=== PATIENT | female | born 1980 | race Caucasian/White ===

== ENCOUNTER → 2019-03-30 17:28 | Outpatient (CLI) | payer OTHER, SELFPAY ==
--- NOTE | ~2019-03-30 | XR_ITS ---
EXAMINATION: XR_CERV2-3V_CR, XR thoracic spine 2V DATE: 03/30/2019 17:56 INDICATION: Neck pain TECHNIQUE: 1. AP, lateral, lateral swimmers and odontoid views of the cervical spine were obtained. 2. AP, lateral and lateral swimmers views of the thoracic spine were obtained. COMPARISON: None FINDINGS: Cervical spine: Slight reversal of the normal cervical lordosis centered at C5-C6 where there is mild disc height los s with small endplate osteophytes. Vertebral body and remaining disc heights are normal. Dens is inta ct. Mild uncovertebral osteoarthritis bilaterally at C4-C5 and C5-C6. No significant cervical facet o steoarthritis. Prevertebral soft tissues are normal. Orthodontic braces along the mandibular and maxi llary teeth. Thoracic spine: 9 degrees dextrocurvature measured between T6 and T9. Sagittal alignment is normal. Vertebral body he ights are normal. Mild disc height loss at T4-T5 through T7-T8. Paravertebral soft tissues and visua lized lungs are unremarkable. Radio mediastinal silhouette is normal. IMPRESSION: 1. Mild cervical and thoracic spondylosis with mild midthoracic dextrocurvature. Reviewed, dictated and finalized at location A. D INSTRUCTOR IMPRESSION: 1. Mild cervical and thoracic spondylosis with mild midthoracic dextrocurvature .
== END ==
PROVIDERS: PCP Nurse Practitioner; Visit Provider Nurse Practitioner
DX: M47.892 Other spondylosis, cervical region (principal); M47.894 Other spondylosis, thoracic region
CPT/HCPCS: 72040; 72070

== ENCOUNTER → 2019-06-01 09:33 | Outpatient (CLI) | payer OTHER, SELFPAY ==
--- NOTE | ~2019-06-01 | MR_ITS ---
EXAMINATION: MR cervical spine wo con EXAM DATE: 06/01/2019 10:19 INDICATION: Neck pain, bilateral arm numbness. TECHNIQUE: Multi-sequential, multiplanar MR images of the cervical spine were obtained without contra st. Axial T2, axial T2 MERGE sequence. Sagittal T1, T2, T2 fat saturation images also obtained. Th ere is no prior study for comparison. FINDINGS: There is mild to moderate disc disease at C5-6. The vertebral body and disc heights are ot herwise well maintained. The vertebral bodies are aligned in the AP dimension. There are no suspiciou s marrow signal abnormalities. The spinal cord signal intensity and intrinsic morphology is normal. C ervicomedullary junction is normal in appearance. Paraspinal soft tissue is unremarkable. Level by level evaluation: C2-C3: Disc does not extend beyond the endplate margin. Uncovertebral joint arthropathy: None. Facet joint arthropathy: Mild bilateral. Neural foraminal stenosis: No stenosis. Central canal stenosis: No stenosis. C3-C4: Disc does not extend beyond the endplate margin. Uncovertebral joint arthropathy: None. Facet joint arthropathy: Mild bilateral. Neural foraminal stenosis: No stenosis. Central canal stenosis: No stenosis. C4-C5: Disc does not extend beyond the endplate margin. Uncovertebral joint arthropathy: Mild left. Facet joint arthropathy: Mild bilateral. Neural foraminal stenosis: No stenosis. Central canal stenosis: No stenosis. C5-C6: There is a mild diffuse disc bulge. Uncovertebral joint arthropathy: Mild bilateral. Facet joint arthropathy: Mild bilateral. Neural foraminal stenosis: No stenosis. Central canal stenosis: No stenosis. C6-C7: Disc does not extend beyond the endplate margin. Uncovertebral joint arthropathy: Mild bilateral. Facet joint arthropathy: None. Neural foraminal stenosis: No stenosis. Central canal stenosis: No stenosis. C7-T1: Disc does not extend beyond the endplate margin. Uncovertebral joint arthropathy: Mild bilateral. Facet joint arthropathy: None. Neural foraminal stenosis: No stenosis. Central canal stenosis: No stenosis. IMPRESSION: 1. Mild cervical spondylosis. Reviewed, dictated and finalized at location B.
== END ==
PROVIDERS: PCP Internal Medicine; Visit Provider Nurse Practitioner
DX: M47.892 Other spondylosis, cervical region (principal)
CPT/HCPCS: 72141

== ENCOUNTER 2019-12-29 13:03 | Outpatient (CLI) | payer OTHER, SELFPAY ==
--- NOTE | ~2019-12-29 | MM_ITS ---
EXAMINATION: MM screening [place] BI w aiden HISTORY: Screening TECHNIQUE: Craniocaudal and mediolateral oblique 3-D tomosynthesis images were obtained and synthetic 2-D images were generated. CAD analysis was submitted and interpreted. COMPARISON: No prior mammogram is available for comparison at this institution. BREAST PARENCHYMAL COMPOSITION: The breasts are extremely dense, which lowers the sensitivity of mamm ography. FINDINGS: There is no evidence of suspicious mass, calcification, or architectural distortion to sugg est malignancy in either breast. There has been no suspicious interval change. IMPRESSION: 1. No mammographic evidence of malignancy. 2. Recommend routine screening mammography in one year. BI-RADS Category 1: Negative Reviewed, dictated and finalized at location D. CIATE MEDIA PLANNER
== END 2019-12-29 13:04 | disposition home or self-care (01) ==
LOC: ANHIMG 13:07
PROVIDERS: PCP Internal Medicine; Visit Provider Obstetrics & Gynecology
DX: Z12.31 Encounter for screening mammogram for malignant neoplasm of breast (principal)
CPT/HCPCS: 77063; 77067

== ENCOUNTER → 2020-02-23 12:55 | Outpatient (CLI) | payer OTHER, SELFPAY ==
--- NOTE | ~2020-02-23 | CT_ITS ---
EXAMINATION: CT abdomen pelvis wo/w con DATE: 02/23/2020 13:39 INDICATION: Gross hematuria, history of colectomy for ulcerative colitis TECHNIQUE: Computed tomography (CT) of the abdomen and pelvis was performed without intravenous contr ast. CT of the abdomen and pelvis was then performed with a total of 130 mL Omnipaque 350 intravenous contrast using a double-bolus technique for simultaneous opacification of the renal parenchyma and r enal collecting system. The dose-length product (DLP) was 1086.08 mGy-cm. Automated exposure control and iterative reconstruction technique were employed. COMPARISON: None FINDINGS: The lung bases are clear. The heart size is normal. The liver, spleen, pancreas, gallbladde r, and adrenal glands are normal. No suspicious renal or urothelial lesion is identified. No stones a re identified in the kidneys, ureters, or bladder. There is no hydronephrosis or hydroureter. There a re changes of total colectomy. No pathologically enlarged abdominal or pelvic lymph nodes are identif ied. There is no free intraperitoneal gas or evidence of bowel obstruction. There are bilateral L5 pa rs defects with grade 1 anterolisthesis of L5 on S1. IMPRESSION: 1. No CT correlate for the patient's symptoms. Reviewed, dictated and finalized at location A. UNICATIONS CONTROLLER
[2020-02-23 13:16] LABS: Estimated Glomerular Filt Rate > 60
== END ==
PROVIDERS: PCP Internal Medicine; Visit Provider Urology
DX: R31.0 Gross hematuria (principal)
CPT/HCPCS: 74178; Q9967

== ENCOUNTER 2020-09-14 09:19 | Outpatient (CLI) | payer OTHER, SELFPAY ==
--- NOTE | ~2020-09-14 | XR_ITS ---
XR knee LT min 4V DATE: 09/14/2020 09:43 INDICATION: Generalized left knee pain. Limited range of motion. History of meniscal tear, anterior c ruciate ligament surgery. TECHNIQUE: Standing AP, PA and lateral views. [place] view. COMPARISON: None FINDINGS: There are drill holes in the distal femur and proximal tibia consistent with anterior cruci ate ligament repair. There is a transverse fixation device in the distal femoral metaphysis and to st aples in the medial aspect of the proximal tibial metadiaphysis. No recent fracture or dislocation or joint effusion. No periosteal reaction or bone destruction. No r adiopaque intra-articular loose body or chondrocalcinosis. IMPRESSION: Postoperative change of the left knee Reviewed, dictated and finalized at location A.
== END 2020-09-14 09:20 | disposition home or self-care (01) ==
PROVIDERS: PCP Internal Medicine; Visit Provider Nurse Practitioner
DX: M25.562 Pain in left knee (principal)
CPT/HCPCS: 73564

== ENCOUNTER → 2020-10-19 10:18 | Outpatient (CLI) | payer OTHER, SELFPAY ==
--- NOTE | ~2020-10-19 | MR_ITS ---
EXAMINATION: MR knee LT wo con DATE: 10/19/2020 11:34 INDICATION: Medial meniscal tear presenting with left knee pain TECHNIQUE: Magnetic resonance imaging (MRI) of the left knee was performed without intravenous contra st. Sequences included coronal PD-weighted FSE, coronal fluid sensitive FSE STIR, sagittal fluid sen sitive FSE STIR, sagittal PD-weighted FSE and axial fluid sensitive FSE STIR. COMPARISON: Left knee radiographs dated 09/14/2020 FINDINGS: Medial compartment: Longitudinal vertical tear in the peripheral third (red zone) of the posterior horn of the medial men iscus. Articular cartilage is normal. Lateral compartment: The body and posterior horn of the lateral meniscus are small consistent with change of prior partial meniscectomy. Complex tear at the remaining posterior horn with vertical configuration and meniscoca psular separation at the periphery of the more lateral posterior horn and transitioning to a more clinton gitudinal horizontal tear plane extends medially towards the posterior root. Deep chondral ulceration with mild underlying cortical irregularity along the anterior to central weightbearing lateral femor al condyle. Additional chondral ulceration along the posterior margin of the lateral tibial plateau w here there is also an irregular cortical contour with appearance more suggestive of an old healed imp action fracture related to a chronic anterior tibial subluxation injury. Patellofemoral compartment: Articular cartilage is normal. Ligaments and tendons: Postoperative change of prior anterior cruciate ligament reconstruction with metallic magnetic field artifact associated with an associated fixation screws at the metaphyseal region at the lateral condy le and with a couple fixation andres along the anteromedial metaphyseal region of the proximal tibia . There is a large intraosseous ganglion cyst which measures approximately 1.9 x 1.3 x 0.9 cm along t he proximal aspect of the femoral tunnel of the reconstruction. There appears to be a partial tear of the graft with cyclops lesion anterior to the tibial tunnel resulting from the torn portion of the g raft. Approximately one half of the graft appears to remain intact extending between the femoral and tibial tunnels. The medial collateral ligament and fibular collateral ligament complex are normal. Th e extensor mechanism is normal. The visualized medial and lateral hamstring tendons as well as the il iotibial band are normal. Fluid: Physiologic amount of fluid in the joint space. There are couple tiny loose bodies the larger measuri ng 3 mm positioned within a ganglion cyst which extends anterolaterally from the region of the tibial tunnel caudal to the transverse (anterior meniscomeniscal) intrameniscal ligament and anterior to th e lateral tibial plateau. Osseous/other: Normal marrow signal. No acute fracture or pathologic marrow replacing process. IMPRESSION: 1. Anterior cruciate ligament reconstruction with partial tear of the graft and large intraosseous ga nglion cyst along the tibial tunnel. 2. Postoperative change of prior partial meniscectomy of the body and posterior horn of the lateral m eniscus with residual/recurrent complex tear at the posterior horn. 3. Longitudinal vertical tear in the peripheral red zone of the posterior horn of the medial meniscus . 4. 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 Reviewed, dictated and finalized at location B. IMPRESSION: 1. Anterior cruciate ligament reconstruction with partial tear of the graft and large intraosseous ganglion cyst along the tibial tunnel. 2. Postoperative change of prior partial meniscectomy of the body and posterior horn of the lateral meniscus wi
== END ==
PROVIDERS: PCP Internal Medicine; Visit Provider Orthopaedic Surgery
DX: S83.242A Other tear of medial meniscus, current injury, left knee, initial encounter (principal); Z98.890 Other specified postprocedural states; M17.12 Unilateral primary osteoarthritis, left knee; M22.42 Chondromalacia patellae, left knee
CPT/HCPCS: 73721

== ENCOUNTER 2020-10-25 00:25 | Day surgery (SDC) | payer OTHER, SELFPAY ==
[2020-10-24 09:06] VITALS: BMI 26.6
[2020-10-25] VITALS (8 sets, daily range): BP systolic 105–135; BP diastolic 66–83; PULSE 75–102; RESP 10–20; TEMP 36.2–36.6; O2SAT 98–100
--- NOTE | 2020-10-25 08:40 | WPDANESEPPF ---
Anes - Initial Pre Proc Eval Procedure: Operation Date: 10/25/20 10:00 Proposed Procedures p Left Knee Arthroscopy, with Partial and Lateral Medial Meniscectomy,with Anterior Cruciate Ligament Debridement, Possible Meniscus Repair - Avinash Au MD Date/Time: 10/25/20 08:40 Surgeon: Avinash Au MD Pre Op Diagnosis: left knee medial meniscus tear Patient Data Age: 40 Gender: F Height: 1.6 m Weight: 68.1 kg Allergies Allergy/AdvReac Type Severity Reaction Status Date / Time latex Allergy Mild Rash Verified 10/24/20 09:04 Home Medications Medication Instructions Recorded Confirmed Type trazodone 50 mg tablet 50 mg PO .at bedtime #90 tablet 06/06/20 10/24/20 Rx sertraline [Zoloft] 50 mg PO HS 10/24/20 10/24/20 History spironolactone 150 mg PO HS 10/24/20 10/24/20 History Patient hx anesthesia problems: none Family hx anesthesia problems: none PMFSH Past Medical History Medical History Anxiety Asthma Depression Ulcerative colitis Surgical History Surgical History History of repair of anterior cruciate ligament of left knee (~1994) History of surgery (~2016) J Pouch Hx of arthroscopic knee surgery (~1993) left knee Hx of colectomy (~2016) Family History Family History Sibling Family history of thyroid disease Father Parkinson disease Social History Social History Smoking status: Never smoker Alcohol intake: current Alcohol use details: few times a month Substance use: never Spiritual care concerns: No Anes - Eval Final PreProcedure Day of Procedure 10/25/20 08:40 Patient weight: overweight Heart: regular rate and rhythm Lungs: clear to auscultation Airway: Mallampati scale class II Neurological: alert and oriented Last oral intake: >/= 8 hours ASA classification: III Emergent: no Anesthetic plan: proceed Anesthesia type and monitoring: general LMA and standard monitoring Informed Consent: The patient's anesthetic plan and its attendant risks and benefits were discussed with the patient/family/POA. Questions were solicited and answers provided to the satisfaction of the patient/family/POA.
[2020-10-25] MEDS: ACETAMINOPHEN 500 MG TABLET 1000 MG PO (09:00)
[2020-10-25] MEDS: LACTATED RINGERS 1,000 ML 30 ML IV CONT (09:15)
[2020-10-25] MEDS: KETOROLAC 15 MG/ML VIAL (*BKC) IV PUSH (09:18)
--- NOTE | 2020-10-25 09:55 | WPDHPUPDATE1 ---
History and Physical Update Update Date/Time: 10/25/20 09:55 History and Physical has been reviewed, including an updated exam of the patient. There are NO changes in the patient's condition. Risks, benefits, and alternatives have been discussed and questions answered. Patient agrees to proceed with procedure.
[2020-10-25] MEDS: ceFAZolin 2 GM/D5W 50 ML 2 GM/50 ML BAG IVPB (10:05)
[2020-10-25] MEDS: MEPERIDINE HCL INJ (*CRX) 50 MG/ML AMPUL 25 MG IV PUSH (11:55)
--- NOTE | 2020-10-25 12:19 | W.PM.PROC2 ---
Procedure Note - Detailed Date of Procedure 10/25/20 Pre-op Diagnosis 1. Left knee medial and lateral meniscus tears 2. Partial ACL tear 3. S/p ACL reconstruction 4. Post-traumatic arthritis. Post-op Diagnosis same Procedure Performed 1. Arthroscopic partial medial and lateral meniscectomy with chondroplasty and ACL debridement. Surgeon Avinash Au MD Church Supervisor Felicity Lin PA-C Anesthesia general Findings Examination under anesthesia revealed 2+ Dean's with a firm endpoint. Similar to the contralateral knee. Slight pivot shift with notable crepitus at the lateral joint line. This was felt to be consistent with the degenerative changes, noted arthroscopically, at the lateral femoral condyle. The lateral meniscus showed complex tearing. Partial previous meniscectomy noted. Subtotal meniscectomy required. Bone was exposed over a fairly substantial area of the lateral femoral condyle. The medial meniscus showed complex tearing with an undersurface degenerative component and a more complete vertical component at the capsule. The degenerative tissue did not hold attempted repair sutures. The tear appeared chronic, and there was degenerative discoloration of the more medial meniscus. The tear was debrided to the undersurface tear. At that point it was clear that there was a more extensive vertical component more peripherally which required subtotal medial meniscectomy to achieve stability of all tissue. The ACL had slight laxity, and a ribbon like appearance of the anterior medial fibers. However, they were quite stable and a Dean's test under direct vision revealed good functioning of the graft. Gentle debridement of a small-moderate sized cyclops lesion anteriorly was performed. The tibial cystic defect was not apparent. Good healthy-appearing soft tissue covered the tibial graft site. The ACL was lightly debrided and shrunk with the radiofrequency probe at the lowest setting. The overall ACL appearance was quite anatomic at the conclusion. Medial femur chondromalacia grade 1, medial tibia grade 1. Lateral femur chondromalacia grade 4, lateral tibia grade 2. Patellar grade 1 (central tiny area), trochlea grade 0. Description of Procedure The patient was identified and the surgical site confirmed and signed in the preoperative holding area. Antibiotics were started per protocol. She was brought to the operative room and transferred to the OR table. A general anesthetic was administered. Supine position with the operative lower extremity position in the leg orosco after placement of a well padded tourniquet. The leg support was lowered and the contralateral limb was supported with a soft bolster. The knee was prepped and draped in the usual sterile fashion. A time-out was performed. The portal sites were marked and infiltrated with 0.25% Marcaine 20 mL. The limb was exsanguinated and the tourniquet inflated to 300 mL Hg. Standard inferolateral and inferomedial portals were established. Inflow was obtained with the saline pump. The camera was introduced. Diagnostic inspection of the joint was accomplished. Attempted suture repair was performed on the medial meniscus. The tissue proved to be quite degenerative. Healing of the tissue was deemed unlikely, and it was elected proceed with meniscectomy. The menisci were debrided with the arthroscopic shaver and punches until stable. The radiofrequency probe was also used for further d?bridement. Gentle chondroplasty was performed at the medial femoral condyle. The arthroscopic instruments were removed. The tourniquet released and wounds closed with subcutaneous 4-0 Monocryl absorbable suture. Steri strips and a sterile dressing were applied. A light elastic wrap was placed. The patient was extubated and brought to the recovery room in stable condition. Estimated Blood Loss -2.0 Drains No Complications No immediate complications Condition stable Disposition PACU
[2020-10-25] MEDS: oxyCODONE HCL (*CRX) 5 MG TAB IR PO (13:16)
== END 2020-10-25 13:30 | disposition home or self-care (01) ==
PROVIDERS: PCP Internal Medicine; Visit Provider Orthopaedic Surgery
PROC: (CPT 29870; principal; 2020-10-25 10:00)
DX: S83.232A Complex tear of medial meniscus, current injury, left knee, initial encounter (principal); S83.272A Complex tear of lateral meniscus, current injury, left knee, initial encounter; S83.512A Sprain of anterior cruciate ligament of left knee, initial encounter; M17.32 Unilateral post-traumatic osteoarthritis, left knee; M94.262 Chondromalacia, left knee; X58.XXXA Exposure to other specified factors, initial encounter; F41.8 Other specified anxiety disorders
CPT/HCPCS: 29880; A9270; J0690; J1100; J1885; J2175; J2250; J2270; J2405; J2704; J7120

== ENCOUNTER 2021-04-19 13:29 | Outpatient (CLI) | payer OTHER, SELFPAY ==
--- NOTE | ~2021-04-19 | MMUS_ITS ---
EXAMINATION: MM diagnostic cecille BI w aiden, US breast BI complete HISTORY: Bilateral breast pain TECHNIQUE: Additional 3-D tomosynthesis images of were performed and synthetic 2-D images were genera agustín. CAD analysis was submitted and interpreted. High resolution breast ultrasound was performed. COMPARISON: 12/29/2019 bilateral screening mammogram BREAST PARENCHYMAL COMPOSITION: The breasts are extremely dense, which lowers the sensitivity of mamm ography. FINDINGS: MAMMOGRAPHIC FINDINGS: No interval dominant mass or architectural distortion, malignant calcification, skin thickening or re traction or significant new or developing density or other significant change since 12/29/2019 is dete cted. ULTRASOUND: Ultrasound imaging of both breasts was performed including all 4 quadrants and subareolar areas with additional imaging at the posterior lower mid to outer right breast breast. No suspicious mass or shadowing is detected. No cyst or other significant finding is noted. IMPRESSION: 1. No mammographic evidence of malignancy 2. Routine annual mammographic screening is recommended. BI-RADS Category 1: Negative Reviewed, dictated and finalized at location A. ET DEVELOPMENT TRAINER IMPRESSION: 1. No mammographic evidence of malignancy 2. Routine annual mammographic screening is recommended. BI-RADS Category 1: Negative
== END 2021-04-19 13:30 | disposition home or self-care (01) ==
LOC: ANHIMG 13:32
PROVIDERS: PCP Internal Medicine; Visit Provider Obstetrics & Gynecology
DX: N64.4 Mastodynia (principal)
CPT/HCPCS: 76641; 77062; 77066; G0279

== ENCOUNTER → 2021-08-10 05:08 | Outpatient (CLI) | payer OTHER, SELFPAY ==
[2021-08-10 12:37] LABS: SARS-CoV-2 RNA PCR Negative
== END ==
PROVIDERS: PCP Internal Medicine; Visit Provider Clinical Nurse Specialist
DX: J32.9 Chronic sinusitis, unspecified (principal); Z20.822 Contact with and (suspected) exposure to COVID-19
CPT/HCPCS: C9803; U0003; U0005

== ENCOUNTER 2021-11-03 16:20 | Emergency (ER) | payer OTHER, SELFPAY ==
--- NOTE | ~2021-11-03 | XR_ITS ---
EXAMINATION: XR chest 2V Exam Date/Time: 11/03/2021 17:03 CDT HISTORY: midsternal cp after covid x 12 days ago Comparison: None available. RESULT: Lines, tubes, and devices: None. Lungs and pleura: Clear. Cardiomediastinal silhouette: Normal. Other: No acute osseous or upper abdominal finding. IMPRESSION: No acute cardiopulmonary process. Reviewed, dictated and finalized at location K.
[2021-11-03 16:28] VITALS: BP 125/83; PULSE 70; RESP 18; TEMP 36.7; O2SAT 99
[2021-11-03 16:42] VITALS: PULSE 69; O2SAT 96
[2021-11-03 16:43] VITALS: O2SAT 100
--- NOTE | 2021-11-03 16:44 | ECG_ITS ---
Measurements Intervals [place] Rate: 66 P: 67 AL: 154 QRS: 1 QRSD: 86 T: 52 QT: 394 QTc: 416 Interpretive Statements SINUS RHYTHM LOW QRS VOLTAGE IN PRECORDIAL LEADS BORDERLINE T WAVE ABNORMALITY- ANTERIOR LEADS BASELINE ARTIFACT- I, III, AVL, AVF, V2 BORDERLINE ECG NO PREVIOUS ECG AVAILABLE FOR COMPARISON Electronically Signed On 11-03-2021 21:35:31 CDT by Jorge Luis Romero D.O.
--- NOTE | 2021-11-03 16:46 | ED.CHESTPAIN ---
HPI - Chest Pain General Chief Complaint: Chest Pain Stated Complaint: chest pain Time Seen by Provider: 11/03/21 16:46 Related Data Home Medications Medication Instructions Recorded Confirmed spironolactone 50 mg tablet 150 mg PO HS 10/24/20 09/28/21 Allergies Allergy/AdvReac Type Severity Reaction Status Date / Time latex Allergy Mild Rash Verified 11/03/21 16:45 PMFSH Past Medical History Medical History (Updated 08/09/21 @ 14:53 by COOPER Mckeon) Anxiety Asthma Depression Traumatic arthritis of left knee Ulcerative colitis Surgical History Surgical History (Updated 07/11/21 @ 11:40 by Winnie Rubio MA) History of arthroscopy of left knee (~10/25/20) PMLM History of repair of anterior cruciate ligament of left knee (~1994) History of surgery (~2016) J Pouch Hx of arthroscopic knee surgery (~1993) left knee Hx of colectomy (~2016) Family History Family History Sibling Family history of thyroid disease Father Parkinson disease Social History Social History Smoking status: Never smoker Alcohol intake: current Alcohol use details: few times a month Substance use: never Spiritual care concerns: No Course Vital Signs Vital signs: Vital Signs Temperature 36.7 C 11/03/21 16:28 Pulse Rate 70 11/03/21 16:28 Respiratory Rate 18 11/03/21 16:28 Blood Pressure 125/83 11/03/21 16:28 Pulse Oximetry 99 11/03/21 16:28 Temperature 36.7 C 11/03/21 16:28 Pulse Rate 69 11/03/21 16:42 Respiratory Rate 18 11/03/21 16:28 Blood Pressure 125/83 11/03/21 16:28 Pulse Oximetry 100 11/03/21 16:43 Oxygen Delivery Room Air 11/03/21 16:43 Discharge Plan Discharge Prescriptions: No Action alprazolam [Xanax] 0.25 mg tablet 0.25 mg PO DAILY PRN (Reason: anxiety) Qty: 20 1RF Rx Instructions: Not to be taken daily spironolactone 50 mg tablet 150 mg PO HS sertraline 50 mg tablet See Rx Instructions .ROUTE .COMPLEX Qty: 90 0RF Dose Instruction: TAKE 1 TABLET BY MOUTH AT BEDTIME Rx Instructions: TAKE 1 TABLET BY MOUTH AT BEDTIME trazodone 50 mg tablet See Rx Instructions .ROUTE .COMPLEX Qty: 90 0RF Dose Instruction: TAKE 1 TABLET BY MOUTH AT BEDTIME Rx Instructions: TAKE 1 TABLET BY MOUTH AT BEDTIME Follow-up/Referrals: Obdulio Troncoso, [Primary Care Provider] -
[2021-11-03] MEDS: ASPIRIN 81 MG CHEWABLE TABLET 324 MG PO (16:48)
[2021-11-03 16:56] LABS: Basophils Percent Auto 0.4 % (0.2-1.2); Eosinophils Absolute Auto 0.1 K/mm3 (0-0.3); Eosinophils Percent Auto 1.2 % (0-4.4); Hematocrit 38.1 % (37.0-47.0); Hemoglobin 13.3 g/dL (12.0-15.0); Immature Granulocyte Absolute 0.05 K/mm3 (0.00-0.031); Immature Granulocyte Percent A 0.6 % (0-0.5); Lymphocytes Absolute Auto 1.93 K/mm3 (0.9-3.2); Lymphocytes Percent Auto 22.5 % (18.3-44.2); Mean Corpuscular HGB Conc 34.9 g/dl (32-36); Mean Corpuscular Volume 91.8 fl (80-100); Monocytes Absolute Auto 0.6 K/mm3 (0.1-0.6); Monocytes Percent Auto 6.5 % (2.6-8.5); Neutrophils Absolute Auto 5.9 K/mm3 (1.3-6.7); Neutrophils Percent Auto 68.8 % (45.5-73.1); Platelet Count Result 239 k/mm3 (150-375); Red Blood Count 4.15 M/mm3 (4.2-5.4); Red Cell Distribution Width 11.2 % (11.5-14.5); White Blood Count 8.6 K/mm3 (4.5-10.0)
--- NOTE | 2021-11-03 16:59 | ED.CHESTPAIN ---
HPI - Chest Pain General Chief Complaint: Chest Pain Stated Complaint: chest pain Time Seen by Provider: 11/03/21 16:46 History of Present Illness HPI narrative: Patient is a 41-year-old female with a history of ulcerative colitis here for evaluation of chest pain. Patient states that the pain is a tightness in the center of her chest, and wraps around to her back. She notes that the pain is mild, there all the time but worse with deep breaths. She has not attempted any medication for pain. Denies history of previous similar sensation. She was diagnosed with COVID about 12 days ago and has been dealing with upper respiratory type symptoms including cough, congestion, fevers, and also experiencing diarrhea and nausea. The symptoms have improved but the chest pain developed today. She has no cardiac history. She has never had a blood clot, no oral contraceptive use, calf pain no leg swelling. Related Data Home Medications Medication Instructions Recorded Confirmed spironolactone 50 mg tablet 150 mg PO HS 10/24/20 09/28/21 Allergies Allergy/AdvReac Type Severity Reaction Status Date / Time latex Allergy Mild Rash Verified 11/03/21 16:45 Review of Systems Review of Systems: Gen.: Denies fevers or chills Eyes: Denies eye pain or visual change ENT: Denies congestion Respiratory: Denies shortness of breath or cough CV: Reports chest pain. GI: Denies abdominal pain nausea, emesis or diarrhea denies burning, urgency, frequency or hematuria Musculoskeletal: Denies back pain or muscle pain Neuro: Denies numbness, tingling, weakness or focal weakness Skin: Denies rash Except as documented, all other systems reviewed and negative [facility] Past Medical History Medical History Anxiety Asthma Depression Traumatic arthritis of left knee Ulcerative colitis Surgical History Surgical History History of arthroscopy of left knee (~10/25/20) PMLM History of repair of anterior cruciate ligament of left knee (~1994) History of surgery (~2016) J Pouch Hx of arthroscopic knee surgery (~1993) left knee Hx of colectomy (~2016) Family History Family History Sibling Family history of thyroid disease Father Parkinson disease Social History Social History Smoking status: Never smoker Alcohol intake: current Alcohol use details: few times a month Substance use: never Spiritual care concerns: No Exam Narrative: APPEARANCE: Well appearing, no pain in distress, well-nourished. Head: Normocephalic and atraumatic. EYES: PERRLA/EOMI, conjunctivae clear NOSE: No nasal drainage EARS: External ear normal in appearance THROAT: Oropharynx is clear. Mucous membranes are moist. NECK: Supple. No adenopathy, no masses. RESPIRATORY: Airway patent, respirations nonlabored. Clear to auscultation bilaterally, no rales, rhonchi, wheezing. CARDIOVASCULAR: Regular rate and rhythm without murmurs, rubs, or gallops. ABDOMINAL: Normoactive bowel sounds. Soft, nontender, nondistended. No rebound tenderness or guarding. MUSCULOSKELETAL: no reproducible tenderness to chest wall. Extremities are warm and well-perfused. Moves all extremities well. No edema. NEURO: Normal speech. No focal neurologic deficits. SKIN: Skin is warm and dry. No rashes. PSYCHIATRIC: Normal affect/mood. Course Vital Signs Vital signs: Vital Signs Temperature 98.1 F 11/03/21 16:28 Pulse Rate 70 11/03/21 16:28 Respiratory Rate 18 11/03/21 16:28 Blood Pressure 125/83 11/03/21 16:28 Pulse Oximetry 99 11/03/21 16:28 Temperature 98.1 F 11/03/21 16:28 Pulse Rate 63 11/03/21 18:04 Respiratory Rate 18 11/03/21 18:04 Blood Pressure 113/70 11/03/21 18:04 Pulse Oximetry 99 11/03/21 18:04 Oxyg
[2021-11-03 17:07] LABS: Alanine Aminotransferase 56 U/L (6-35); Albumin Level 4.5 g/dL (3.5-5.1); Alkaline Phosphatase 63 U/L (38-126); Anion Gap 14 mmol/L (8-16); Aspartate Amino Transferase 44 U/L (14-36); Bilirubin,Total 0.6 mg/dL (0.2-1.3); Blood Urea Nitrogen 17 mg/dL (7-17); Calcium 8.8 mg/dL (8.4-10.2); Carbon Dioxide 24 mmol/L (22-30); Chloride 101 mmol/L (98-107); Estimated CRCL calculation 67 ml/min; Estimated Glomerular Filt Rate > 60; Glucose 94 mg/dL (65-110); Lipase 165 U/L (23-300); Potassium 4.1 mmol/L (3.4-5.0); Sodium 139 mmol/L (137-145)
[2021-11-03 17:08] LABS: Partial Thromboplastin Time 26.6 SECONDS (22.3-36.8); Prothrombin Time 12.9 Seconds (11.1-14.7)
[2021-11-03 17:19] LABS: Troponin I < 0.012 ng/mL (0.000-0.034)
[2021-11-03 17:45] LABS: D Dimer < 0.27 ug/mL (<0.48)
[2021-11-03 17:50] VITALS: BP 105/69; PULSE 63; RESP 16; O2SAT 99
[2021-11-03 18:04] VITALS: BP 113/70; PULSE 63; RESP 18; O2SAT 99
== END 2021-11-03 18:07 | disposition home or self-care (01) ==
PROVIDERS: Physician Assistant; Emergency Provider Emergency Medicine; PCP Internal Medicine
DX: R07.89 Other chest pain (principal); K51.90 Ulcerative colitis, unspecified, without complications; F41.9 Anxiety disorder, unspecified; F32.A Depression, unspecified; Z90.49 Acquired absence of other specified parts of digestive tract
CPT/HCPCS: 36415; 71046; 80053; 83690; 84484; 85025; 85380; 85610; 85730; 93005; 99284; A9270

== ENCOUNTER 2023-12-23 09:47 | Outpatient (CLI) | payer BC, SELFPAY ==
[2023-12-23 20:11] LABS: Basophils Percent Auto 0.8 % (0.2-1.2); Eosinophils Absolute Auto 0.2 K/mm3 (0-0.3); Eosinophils Percent Auto 3.3 % (0-4.4); Hemoglobin 12.7 g/dL (12.0-15.0); Immature Granulocyte Absolute 0.02 K/mm3 (0.00-0.031); Immature Granulocyte Percent A 0.4 % (0-0.5); Lymphocytes Absolute Auto 1.42 K/mm3 (0.9-3.2); Lymphocytes Percent Auto 27.2 % (18.3-44.2); Mean Corpuscular HGB Conc 34.3 g/dl (32-36); Mean Corpuscular Hemoglobin 33.1 pg (26-34); Mean Corpuscular Volume 96.4 fl (80-100); Mean Platelet Volume 9.2 fl (7.4-10.4); Monocytes Absolute Auto 0.4 K/mm3 (0.1-0.6); Monocytes Percent Auto 6.7 % (2.6-8.5); Neutrophils Absolute Auto 3.2 K/mm3 (1.3-6.7); Neutrophils Percent Auto 61.6 % (45.5-73.1); Platelet Count Result 221 k/mm3 (150-375); Red Blood Count 3.84 M/mm3 (4.2-5.4); White Blood Count 5.2 K/mm3 (4.5-10.0)
[2023-12-23 20:47] LABS: Alanine Aminotransferase 23 U/L (6-35); Alkaline Phosphatase 47 U/L (38-126); Anion Gap 8 mmol/L (4-12); Aspartate Amino Transferase 30 U/L (14-36); Bilirubin,Total 0.6 mg/dL (0.2-1.3); Blood Urea Nitrogen 13 mg/dL (7-17); Carbon Dioxide 28 mmol/L (22-30); Chloride 103 mmol/L (98-107); Estimated Glomerular Filt Rate > 60; Glucose 81 mg/dL (65-110); Potassium 4.4 mmol/L (3.4-5.0); Sodium 139 mmol/L (137-145)
== END 2023-12-23 09:48 | disposition home or self-care (01) ==
PROVIDERS: PCP Internal Medicine; Visit Provider Nurse Practitioner
DX: R19.7 Diarrhea, unspecified (principal)
CPT/HCPCS: 36415; 80053; 85025

== ENCOUNTER 2024-02-10 08:59 | Outpatient (CLI) | payer BC, SELFPAY ==
[2024-03-01 20:04] VITALS: BMI 24.7
--- NOTE | 2024-03-01 20:04 | P.SLEEP_ITS ---
Sleep Study - Home Unattended Date of Study: 02/10/24 Ordering Provider: Mireya Reynolds NP Interpreting Provider: Mary Ruby, DO Home Sleep Study Type: Watch PAT Height: 1.57 m Weight: 61.235 kg Body Mass Index: 24.7 Neck Circumference (inches): 12.75 Lane: 9 Reason for Sleep Study Daytime hypersomnia Sleep History The patient is a 43-year-old female that had a sleep study ordered for evaluation of sleep apnea.? The patient admits to having difficulty falling asleep, staying asleep, or excessive daytime sleepiness and interruptions in breathing while asleep.? The patient denies snoring loudly.? She denies choking or gasping at night.? She does have trouble breathing on her back.? She does have morning headaches.? She does have a dry or sore mouth/throat in the morning.? She denies nocturnal heartburn.? She does have nocturia.? She does have difficulty returning to sleep if she wakes up throughout the night.? She does use a hypnotic or sedative.? She denies feeling anxious about sleep.? She does feel tired or sleepy during the day.? She does feel tired in the morning.? She denies having the urge to fall asleep during the day.? She denies feeling drowsy while driving.? She denies sleep paralysis, cataplexy and hypnagogic/hypnopompic hallucinations.? She does clench or grind her teeth.? She does kick her jerk her legs excessively.? She denies having a restless feeling in her legs.? She goes to bed at 10:00 p.m. on work days and at 11:00 p.m. on her days off.? It takes her 30 minutes to fall asleep on work days and 45 minutes on other days.? She gets 7 hours of sleep per night.? Her sleep is not at all restorative on her days off.? She denies taking any planned naps.? She does after our dreams.? She does sleep walk as an adult. She consumes 1-2 cups of caffeinated beverages per day.? She denies tobacco and alcohol use.? She exercises 1-2 nights per week. 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 Depression Asthma Anxiety Ulcerative colitis Surgical History Surgical History History of arthroscopy of left knee (~10/25/20) PMLM History of surgery (~2016) J Pouch Hx of colectomy (~2016) History of repair of anterior cruciate ligament of left knee (~1994) Hx of arthroscopic knee surgery (~1993) left knee Family History Family History Sibling Family history of thyroid disease Father Parkinson disease Social History Social History Social History: caffeine Smoking status: Never smoker Alcohol intake: current Alcohol use details: few times a month Substance use: never Substance use type: does not use Lack of Transportation: No Lack of Food: Never True Current Housing: I Have Housing Concerned About Future Housing: No Difficulty Paying Gas/Electric Bills: No Difficulty Paying for Meds: No Currently Unemployed: No Education: Bachelor's Degree Difficulty w/ Childcare or Family Care: No Spiritual care concerns: No Medications Home Medications ?Medication ?Instructions ?Recorded ?Confirmed ?Type albuterol sulfate 90 mcg/actuation 1 inh inhalation Q4H PRN shortness 06/11/22 12/23/23 Rx aerosol inhaler of breath or wheezing #8.5 grams cefdinir 300 mg capsule mg PO PRN 01/29/23 12/23/23 History diphenoxylate-atropine 2.5 1 tablet PO PRN 01/29/23 12/23/23 History mg-0.025 mg tablet leucovorin calcium 5 mg tablet 10 mg PO WEEKLY 12/23/23 12/23/23 History methotrexate sodium 2.5 mg tablet 12.5 mg PO WEEKLY 12/23/23 12/23/23 History sertraline 50 mg tablet 50 mg PO QHS #30 tabs 01/15/24 Rx trazodone 100 mg tablet 100 mg PO QHS PRN sleep #90 tabs 01/15/24 Rx alprazolam 0.25 mg tablet (Xanax) 0.25 mg PO DAILY PRN anxiety #20 02/09/24 Rx tabs Sleep Procedure The sleep study was completed using FindersfeeT a technically adequate device with seven channels: peripheral arterial tone, actigraphy, body position, snore, respiratory movement, pulse oximetry, sleep staging, and heart rate. Prior to using the device, the patient received verbal and written instructions for its application and was provided with the help desk phone number for additional telephonic instruction with 24-hour availability of qualified personnel to answer questions. The study was scored using CMS guidelines. Sleep Architecture The total recording time is 8 hrs, 22 min. The total sleep time is 7 hrs, 3 min. Sleep latency is 21 minutes. REM latency is 109 minutes. The patient had 8 episodes of waking. Sleep architecture shows 14.6% deep sleep, 64.0% light sleep, and (as % Total Sleep Time) showed NREM (Light 64.0%; Deep 14.6%), and a 21.4% stage REM. The patient spent 59.8% of total sleep time in the supine position. Sleep efficiency was 84.26. Respiratory Analysis The overall AHI (pAHI 3%:) is 2.2. The central AHI is 1.0. The AHI was 0.9 in NREM and 6.6 in REM sleep. The AHI was 3.2 in Supine and 0.7 in Non-supine sleep. Percent of Imtiaz Sharp respirations is 0.0. Oximetry Data The oxygen desaturation index (RAULITO 4%:) is 0.7. The mean saturation is 96%, and the lowest saturation is 90%. Time spent with saturation < 88% is 0.0 minutes. Snoring Profile Snoring average intensity is 40 dB. The patient snored above 45 decibels for 6.8 minutes, 1.6% of sleep time. Cardiac Profile The average pulse rate is 65 beats per minutes. The lowest pulse rate is 54 bpm. The highest pulse rate reported is 91 bpm. Atrial fibrillation was not detected. Premature beats occur 0.2 per minute. Assessment and Plan Assessment and Plan (1) Sleep disturbance: Code(s): G47.9 - Sleep disorder, unspecified Status: Acute Assessment and Plan: The patient had an overall AHI of 2.2 with desaturation down to 90%. This is not consistent with sleep-disordered breathing. If there is further concern for a sleep disorder, I recommend that the patient have a split study with the use of a hypnotic (Lunesta 2-3 mg or Ambien 5-10 mg) to ensure we obtain enough sleep data. Data The data obtained during this sleep study is adequate for interpretation. Certification This sleep study has been reviewed by a board certified sleep medicine physician.
== END 2024-02-11 10:41 | disposition home or self-care (01) ==
LOC: ANHCSM 08:59
PROVIDERS: PCP Internal Medicine; Visit Provider Nurse Practitioner
DX: G47.9 Sleep disorder, unspecified (principal)
CPT/HCPCS: 95800

== ENCOUNTER 2025-01-18 11:02 | Outpatient (CLI) | payer BC, SELFPAY ==
--- OUTSIDE RECORDS SUMMARY | 2019-12-29 | XMS_ITS | Encounter Summary ---
Author Organization [facility] Healthcare Address [address] [place] [address] Care Team Providers Care Bench Patternmaker Metal Name Role Phone Obdulio Troncoso DO Primary Care Provider [phone]- [phone] Reason for Visit * Diagnostic Imaging (Routine) - Closed Specialty Diagnoses / Procedures Referred By Contabigail t Referred To Contact Diagnoses 123 Procedures Breast Imaging Screening Outside Reference Ana Triana MD [address] [facility] [id number] [place] [address] Phone: tel: fax: Ana Triana MD [address] [facility] [id number] [place] [address] Phone: tel: fax: Referral ID Status Reason Start Date Expiration Date Visits Re quested Visits Authorized [id number] Closed 03/26/2023 04/24/2024 1 1 Encounter Details Date Type Department Care Team (Late st Contact Info) Description 12/29/2019 Hospital Encounter [facility] [address] [place] [id number] Social History Tobacco Use Types Packs/Day Years Used Date Smoking Tobacco: Never Passive Smoke Exposure: Never Smokeless Tobacco: Never Alcohol Use Standard Drinks/Week Comments Not Currently 0 (1 standard drink = 0.6 oz pur e alcohol) AUDIT-C Answer Date Recorded Q1: How often do you have a drink containing alc ohol? Monthly or less 11/30/2024 Q2: How many drinks containi ng alcohol do you have on a typical day when you are drinking? 1 or 2 11/30/2024 Q3: How often do you have si x or more drinks on one occasion? Never 11/30/2024 Personal Safety Answer Date Recorded Have you ever been in or are you currently in a harmful physical or emotional relationship or is someone making you feel afraid or unsafe? Denies 11/30/2024 Comments No Sex and Gender Information Value Date Recorded Sex Assigned at Not on file Legal Sex Female 6:35 AM FOX RAISER Gender Identity Female 11/08/2019 7:12 PM CDT Sexual Orientation Straight 11/08/2019 7: 12 PM CDT documented as of this encounter Functional Status * Difference in Last Two Lance Scores Answer Date of Assessment Author -1 11/30/2024 2:29 PM CDT Yaron Milner RN * Question Answer Date of Assessment Author BP Method Automatic 07/13/2024 3:05 PM CDT Swapna Zimmerman RN MAP (mmHg) 79 11/30/2024 5:05 PM CDT Penny Olmstead RN * Landaverde Fall Risk Question Answer Date of Assessment Author History of Falling 0 11/30/2024 2:29 PM CDT Monica Milner RN Secondary Diagnosis 15 11/30/2024 2:29 PM CD T Monica Milner RN Ambulatory Aids 0 11/30/2024 2:29 PM JOHNNYT Monica Sanchez RN Intravenous Therapy/Heparin/Saline Lock 20 11/30/2024 2:29 PM CDT Yaron Milner RN Gait/Transferring 0 11/30/2024 2:29 PM CDT Monica Milner RN Mental Status 0 11/30/2024 2:29 PM CDT Monica Garcia RN Landaverde Fall Risk Score (Score >= 45 places fall precaution order) 35 11/30/2024 2:29 PM CDT Monica Milner RN Prior Fall Event (Autopopulated from EMR) None found 11/30/2024 2:29 PM CDT Anisha Milner RN * Lance Scale Question Answer Date of Assessment Author Sensory Perceptions 4 11/30/2024 2:29 PM CD T Monica Milner RN Moisture 4 11/30/2024 2:29 PM CDT Monica Meadows RN Activity 4 11/30/2024 2:29 PM CDT Monica Meadows RN Mobility 4 11/30/2024 2:29 PM CDT Monica Meadows RN Nutrition 4 11/30/2024 2:29 PM CDT Monica Meadows RN Friction and Shear 3 11/30/2024 2:29 PM CDT Monica Milner RN Lance Scale Score 23 11/30/2024 2:29 PM CDT Monica Milner RN * BP Location Answer Date of Assessment Author Right arm 11/24/2024 2:32 PM CDT Camilla Tucker * Fall Risk Interventions Question Answer Date of Assessment Author All Low Fall Interventions Applied Yes 07/13/2024 3:07 PM CDT Swapna Celaya RN All Moderate Fall Interventions Applied No 12/19/2023 8:43 AM JOHNNYT Rosalba Haskins RN All Moderate Fall Risk Interventions EXCEPT: PT eval requested or obtained;OT eval requested or obtained;Remain with patient while toileting 12/19/2023 8:43 AM JOHNNYT Rosalba Haskins RN All High Fall Risk Interventions Applied No 12/18/2023 8:00 PM JOHNNYT Marielena Varghese RN All High Risk Interventions EXCEPT: Bed alarm;Chair alarm 12/18/2023 8:00 PM CDT Marielena Varghese RN Reason For Exception(s) BMAT 4 12/19/19 8:43 AM JOHNNYT Rosalba Haskins RN Reason For Exception(s) patient alert an d orientated x4 12/18/2023 3:38 PM CDT Rosita Sanchez, FLAQUITA * B.M.A.T. - Bedside Mobility Assessment Tool for Nurses Question Answer Date of Assessment Author Is patient able to participate in the BMAT? Yes 12/19/2023 8:43 AM JOHNNYT Savanah Haskins RN BMAT Level Level 4 - Green 12/19/2023 8:43 AM CDT Rosalba Mallory, FLAQUITA * Question Answer Date of Assessment Author 1. Has the patient self-reported, presented with clinical signs of, or have a documented history of any of the following within the past 30 days? No 12/18/2023 3:38 PM CDT Rosita Sanchez, FLAQUITA * Question Answer Date of Assessment Author Is the patient being treated today because it is known or suspected that they prepared, started, or tried to end their life? No 07/07/2024 1:24 PM CDT Ilan Mehta * Question Answer Date of Assessment Author 1. In the past month, have y ou wished you were or that you could go to sleep and not wake up? No 07/07/2024 1:24 PM Ilan LEI 2. In the past month, have y ou actually had any thoughts of killing yourself? No 07/07/2024 1:24 PM Ilan LEI 6. Have you ever done anythi ng, started to do anything, or prepared to do anything to end your life? No 07/07/2024 1:24 PM Ilan LEI * Suicide Risk Level Answer Date of Assessment Author No risk level 07/07/2024 1:24 PM Caleb LEI an * Self-Injurious Risk Level Answer Date of Assessment Author No risk level 12/18/2023 3:38 PM CDT Rosita Sanchez, FLAQUITA * Alcohol Withdrawal BP Hierarchy Answer Date of Assessment Author 73 01/08/2023 1:35 PM FOX RAISER Sonal Brown CMA * Pressure Injury Prevention Question Answer Date of Assessment Author Pressure Ulcer Prevention Interventions Keep skin clean and dry (Sensory Perception/Moisture ) 12/19/2023 8:43 AM CDT Rosalba Haskins, FLAQUITA 2 Nurse Skin Assessment Sarina SAMS 12/18/2023 3:54 P M CDT Rosita Sanchez, FLAQUITA * Transdermal Patch Assessment on Admission Answer Date of Assessment Author Not Present 12/18/2023 3:38 PM JOHNNYT Rosita Sanchez, FLAQUITA * AUDIT-C Score Answer Date of Assessment Author 1 11/30/2024 2:27 PM CDT Yaron Milner RN * Alcohol Use Question Answer Date of Assessment Author Q1: How often do you have a drink containing alcohol? Monthly or less 11/30/2024 2:27 PM JOHNNYT Monica Milner RN Q2: How many drinks containing alcohol do you have on a typical day when you are drinking? 1 or 2 11/30/2024 2:27 PM CDT Elsie Milner RN Q3: How often do you have six or more drinks on one occasion? Never 11/30/2024 2:27 PM CDT Monica Milner RN * Fall Risk Assessment Tool - MEDFRAT Question Answer Date of Assessment Author Prior Fall Event (Autopopulated from EMR) None found 07/07/2024 1:25 PM CDT Ilan Mehta Pt needs supervision/assistance with ambulation? (makes patient High risk) No 07/07/2024 1:25 PM CDT Ilan Mehta History of falling in last 3 months, including since admission 0 07/07/2024 1:25 PM CDT G, Ilan Confusion or disorientation 0 07/07/2024 1: 25 PM CDT G, Ilan Intoxicated or sedated 0 07/07/2024 1:25 PM CDT G, Ilan Impaired gait 0 07/07/2024 1:25 PM CDT Janine, J onathan Mobility assist device used 0 07/07/2024 1: 25 PM CDT G, Ilan Altered elimination 0 07/07/2024 1:25 PM CD T Ilan Mehta Fall risk score: (1-2 low risk), (3-4 moderate risk), (5 or more high risk) 0 07/07/2024 1:25 PM JOHNNYT Ilan Mehta Interventions - GENERAL USE as needed patient/family education;call light in reach;bed low/locked 07/07/2024 1:25 PM Ilan LEI * Integumentary Question Answer Date of Assessment Author Skin Color Appropriate for ethnicity 12/19/2023 8:43 AM JOHNNYT Rosalba Haskins RN Skin Condition/Temp Dry;Warm 12/19/2023 8 :43 AM CDT Rosalba Haskins RN Skin Turgor Non-tenting 12/19/2023 8:43 AM CDT Rosalba Haskins RN Integumentary Additional Assessments Yes-Lance QD 12/18/2023 3:54 PM CDT Rosita Sanchez RN Integumentary (WDL) WDL 11/30/2024 2 :29 PM CDT Monica Milner RN * Lance Scale Question Answer Date of Assessment Author Lance Scale Used Lance 11/30/2024 2:29 PM CDT Monica Milner, FLAQUITA * Question Answer Date of Assessment Author BP Method Automatic 07/13/2024 3:05 PM CDT Swapna Zimmerman, FLAQUITA * Question Answer Date of Assessment Author Feeding Level of Assistance Able to feed self 12/18/19 5:00 PM CDT Virginia Garza * BP Location Answer Date of Assessment Author Right arm 11/24/2024 2:32 PM CDT Camilla Tucker * Fall Risk Interventions Question Answer Date of Assessment Author All Low Fall Interventions Applied Yes 07/13/2024 3:07 PM CDT Swapna Celaya RN All Moderate Fall Interventions Applied No 12/19/2023 8:43 AM JOHNNYT Rosalba Haskins RN All Moderate Fall Risk Interventions EXCEPT: PT eval requested or obtained;OT eval requested or obtained;Remain with patient while toileting 12/19/2023 8:43 AM JOHNNYT Rosalba Haskins RN All High Fall Risk Interventions Applied No 12/18/2023 8:00 PM CDT Marielena Varghese RN All High Risk Interventions EXCEPT: Bed alarm;Chair alarm 12/18/2023 8:00 PM CDT Marielena Varghese RN Reason For Exception(s) BMAT 4 12/19/19 8:43 AM CDT Rosalba Haskins RN Reason For Exception(s) patient alert an d orientated x4 12/18/2023 3:38 PM CDT Rosita Sanchez, FLAQUITA * ADL Screening Question Answer Date of Assessment Author Patient's Vision Adequate to Safely Complete Daily Activities Yes 12/18/2023 3:38 PM CDT Rosita Sanchez RN Patient's Judgement Adequate to Safely Complete Daily Activities Yes 12/18/2023 3:38 PM Rosita Rojas RN Patient's Memory Adequate to Safely Complete Daily Activities Yes 12/18/2023 3:38 PM Rosita Rojas RN Patient Able to Express Needs/Desires Yes 12/18/2023 3:38 PM Rosita Rojas RN Dressing Independent 12/18/2023 3:38 PM Rosita Guzman RN Grooming Independent 12/18/2023 3:38 PM Rosita Guzman RN Feeding Independent 12/18/2023 3:38 PM Rosita Guzman RN Bathing Independent 12/18/2023 3:38 PM Rosita Guzman RN Toileting Independent 12/18/2023 3:38 PM Rosita Guzman RN In/Out Bed Independent 12/18/2023 3:38 PM Rosita Guzman RN Walks in Home Independent 12/18/2023 3:38 PM Rosita Patel, FLAQUITA Weakness of Legs None 12/18/2023 3:38 PM Rosita Nevarez RN Weakness of Arms/Hands None 12/18/2023 3:38 PM Rosita Rojas RN Hearing - Right Ear Functional 12/18/2023 3:38 PM Rosita Malin RN Hearing - Left Ear Functional 12/18/2023 3:38 PM Rosita Rojas RN Dominant hand? Right 12/18/2023 3:38 PM Rosita Alcantara Chi, FLAQUITA Decline in ADLs in last 2 weeks? No 12/18/2023 3:38 PM Rosita Rojas RN * Therapy Consults Question Answer Date of Assessment Author PT Evaluation Needed 2 12/18/2023 3:38 PM Rostia Farnsworth, FLAQUITA OT Evaluation Needed 2 12/18/2023 3:38 PM Rosita Farnsworth, FLAQUITA TILER Evaluation Needed 2 12/18/2023 3:38 PM Rosita Rojas, FLAQUITA * Assistive Devices Question Answer Date of Assessment Author Assistive Devices/DME None 12/18/2023 3:38 PM Rosita Rojas, FLAQUITA * Speech/Swallow Screening Question Answer Date of Assessment Author Currently, does patient have difficulty swallowing; coughing/choking while swallowing, or feels like food is sticking No 12/18/2023 3:38 PM Rosita Rojas, FLAQUITA In the past two weeks has the patient had changes in speaking or ability to comprehend conversation No 12/18/2023 3:38 PM Rosita Rojas, FLAQUITA Currently, does patient require thickened liquids or dysphagia diet No 12/18/2023 3:38 PM Rosita Rojas RN Patient is in need of TILER Order: No TILER order needed from this assessment 12/18/2023 3:38 PM Rosita Rojas, FLAQUITA * Hygiene Question Answer Date of Assessment Author Hygiene Skin cleanser;Hair washed 2023 11:30 AM Teresa Stevenson Hygiene Level of Assistance Independent 12/19/2023 11:30 AM Teresa Stevenson Toileting: Level of assistance Independent 12/19/2023 11:30 AM Teresa Stevenson Reason not bathed/showered Patient/family refused bath/shower 12/18/2023 7:30 PM Marielena Johnson RN Bath Bathed/showered with chlorhexidine (CHG) 12/19/2023 11:30 AM Teresa Stevenson documented as of this encounter Mental Status * Question Answer Entry Date Author Orientation Oriented X4 (person, place, time, situation) 12/19/2023 8:43 AM Rosalba Chaney RN Neuro ([facility]) WD 12/19/2023 8:43 AM Rosalba Chaney RN * Question Answer Entry Date Author Level of Consciousness Sedated 11/30/2024 4:35 PM Penny Keating RN Neuro (WDL) WDL 11/30/2024 4:45 PM CDT Penny Olmstead RN documented in this encounter Plan of Treatment Not on file documented as of this encounter Procedures Procedure Name Priority Date/Time Associated Diagnosis Comments BREAST IMAGING MG SCREENING OUTSIDE REFERENCE Routine 12/29/2019 12:00 AM FOX RAISER documented in this encounter Results * Breast Imaging Screening Outside Reference (12/29/2019 12:00 AM FOX RAISER) Impressions [facility] - 03/26/2023 12:12 PM FOX RAISER These images are for Reference purposes only and have not been reviewed by [facility]. There will be no report generated by a [facility]iologist. Narrative [facility] - 03/26/2023 12:12 PM FOX RAISER EXAMINATION: Images For Reference Purposes Only us Provider Transcribed Order IMG MAMMO PROCEDURES Final Result [facility] documented in this encounter Visit Diagnoses Not on filedocumented in this encounter Additional Health Concerns Infection Onset Date Last Indicated Resolved Time COVID: Suspected 12/18/2023 12/18/2023 12/18/2023 1:59 PM CDT C. difficile suspected 12/18/2023 12/18/202312/17 3:42 PM CDT documented as of this encounter Care Teams Bench Patternmaker Metal Relationship Specialty Start Date End Date Obdulio Troncoso DO PCP - General 08/14/16 documented as of this encounter
--- OUTSIDE RECORDS SUMMARY | 2025-01-18 12:49 | XMS_ITS | Encounter Summary ---
Author Organization [facility] Healthcare Address [address] [place] [address] Care Team Providers Care Keysmith Name Role Phone Obdulio Troncoso DO Primary Care Provider [phone] Catia Cody MD Unavailable [phone] Selina Rodriguez MD Unavailable [phone] Encounter Details Date Type Department Care Team (Latest Contact Info) Description 12/07/2024 Results [facility] ([facility]) [address] [place], [place] [id number] Marvel Jeffries MD [address] [place], [place] [id number] Pap and High Risk HPV and Genotyping (Cytology Component) Social History Tobacco Use Types Packs/Day Years [...] on file 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
--- OUTSIDE RECORDS SUMMARY | 2025-01-18 12:49 | XMS_ITS | Clinical Summary ---
Author Organization [facility] [address] Address [address] [facility] [place] [address] Care Team Providers Care Chair Mender Name Role Phone Obdulio Troncoso DO Primary Care Provider [phone] Source Comments [facility],non-owned Affiliates and Associated Physician Practices is amultiple site organization consisting of ambulatory clinics and hospital sitesin [place], [place], [place] and [place]. This disclosure is being madepursuant to the Care Everywhere program and may not contain all information available regarding this patient. 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 Alwaysverify current medications with the patient. sertraline (Zoloft) 50 MG tablet 4 Active spironolactone (Aldactone) 50 MG tablet Take 3 (three) tablets by mouth once daily 4 Active traZODone (Desyrel) 50 MG tablet Take 1 (one) tablet by mouth at bedtime 3 Active cefdinir (Omnicef) 300 MG capsule 4 Active diphenoxylate-a tropine (Lomotil) 2.5-0.025 MG tablet Take 1 (one) tablet by mouth once daily as needed 4 Active vitamin D, ergocalciferol, (Drisdol) 1.25 MG (36522 UT) capsule Take 1 capsule PO one day per month 3 Active fluconazole (Diflucan) 200 MG tablet 3 Active ALPRAZolam (Xanax) 0.25 MG tablet Take 1 (one) tablet by mouth 3 times daily as needed for Anxiety Active albuterol HFA (Proventil; Ventolin; Proair) 108 (90 Base) MCG/ACT inhaler 3 Active cyclobenzaprine (Flexeril) 5 MG tablet Take 1 (one) tablet by mouth once daily as needed 30 tablet 1 4 Active doxycycline hyclate (Vibramycin) 100 MG capsule Take 1 (one) capsule by mouth once daily 5 Active ondansetron, disintegrating, (Zofran ODT) 4 MG tablet Take 1 (one) tablet by mouth every 8 hours as needed 4 Active tretinoin (Retin-A) 0.1 % cream Apply 1 Application to affected area at bedtime 3 Active Family History Medical History Relation Name Comments High Cholesterol Father Parkinson's Disease Father Other - Gastrointestinal Mother timo ch Relation Name Status Comments Father Mother Social History Tobacco Use Types Packs/Day Years Used Date Smoking Tobacco: Never Smokeless Tobacco: Never Tobacco Cessation:Counseling Given: Not Answered Alcohol Use Standard Drinks/Week Comments Yes 0 (1 standard drink = 0.6 oz pur e alcohol) less than weekly PHQ-2 Answer Date Recorded Patient Health Questionnaire-2 Score 0 07/28/2024 Comments No Sex and Gender Information Value Date Recorded Sex Assigned at Not on file 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 Gender Identity Not on file Sexual Orientation Not on file Last Filed Vital Signs Vital Sign Reading Time Taken Comments Blood Pressure 100/62 07/28/2024 11:15 AM CDT Pulse 80 07/28/2024 11:15 AM CDT Temperature 36.9 C (98.4 F) 05/07/2024 10:10 AM CDT Respiratory Rate 16 07/28/2024 11:15 AM CDT Oxygen Saturation 99% 07/28/2024 11:15 AM CDT Inhaled Oxygen Concentration - - Weight 62.7 kg (138 lb 3.2 oz) 07/28/2024 11:15 AM CDT Height 157.5 cm (5' 2) 05/07/2024 5:57 AM CDT Body Mass Index 25.28 05/07/2024 5:57 AM CDT Plan of Treatment Health Maintenance Due Date Last Done Comments COLOGUARD (AGES 45-75) - COL ON CA SCREENING 1978 COLON MONITORING 1978 COLONOSCOPY - COLON CA SCREENING 1978 CT COLONOGRAPHY - COLON CA SCREENING 1978 Colorectal Cancer Screening 1978 FIT - COLON CA SCREENING 1978 FLEX SIG - COLON CA SCREENING 1978 LIPID TESTING 1978 HIV SCREENING 1993 DTAP/TDAP/TD VACCINES (1 - Tdap) 1997 HEPATITIS B VACCINE (1 of 3 - 19+ 3-dose series) 1997 PAP with HPV 2008 Cervical Cancer Screening 07/04/2017 PAP SMEAR 07/04/2017 07/04/2014 COVID-19 VACCINE ( - 2024-2 6 season) 2024 INFLUENZA VACCINE (#1) 2024 1, 01/25/2016 MAMMOGRAM 03/26/2025 03/26/2023, 03/26/2023 SCREENING FOR DIABETES 06/15/2027 5, 12/03/2023, 08/18/2023 ZOSTER VACCINE (1 of 2) 2028 HEPATITIS C SCREENING Completed 08/18/2023 DEPRESSION SCREENING Completed 03/29/2024 HIB VACCINE Aged Out No longer eligi ble based on patient's age to complete this topic HPV VACCINE Aged Out No longer eligi ble based on patient's age to complete this topic MENINGOCOCCAL (Group B) VACCINE SHARED DECISION-MAKING Aged Out No longer eligible based on patient's age to complete this topic MENINGOCOCCAL GROUPS A/C/Y/W VACCINE Aged Out No longer eligible b ased on patient's age to complete this topic PNEUMOCOCCAL VACCINE Aged Out No long er eligible based on patient's age to complete this topic Procedures Procedure Name Priority Date/Time Associated Diagnosis Comments COMPREHENSIVE METABOLIC PANEL Routine 06/14/2024 11:51 AM CDT Inflammatory arthritis HEPATITIS SCREEN ACUTE ([facility]) Routine 08/18/2023 11:15 AM CDT Inflammatory arthritis from Last 3 Months or Most Recently Relevant to Health Maintenance Results * COMPREHENSIVE METABOLIC PANEL (06/14/2024 11:51 AM CDT) Glucose 88 70 - 99 mg/dL [facility] ACCOUNT BILL BUN 12 6 - 24 mg/dL [facility] ACCOUNT BILL Creatinine 0.83 0.57 - 1.00 mg/dL [facility] ACCOUNT BILL eGFR by CKD-EPI 89 >59 mL/min/1.7 3 [facility] ACCOUNT BILL BUN/Creatinine Ratio 14 9 - 23 [facility] ACCOUNT BILL Sodium 138 134 - 144 mmol/L [facility] ACCOUNT BILL Potassium 4.3 3.5 - 5.2 mmol/L [facility] ACCOUNT BILL Chloride 106 96 - 106 mmol/L [facility] ACCOUNT BILL CO2 20 20 - 29 mmol/L [facility] ACCOUNT BILL Calcium 9.0 8.7 - 10.2 mg/dL [facility] ACCOUNT BILL Protein Total 6.8 6.0 - 8.5 g/dL [facility] ACCOUNT BILL Albumin 4.2 3.9 - 4.9 g/dL [facility] ACCOUNT BILL Globulin Total 2.6 1.5 - 4.5 g/dL [facility] ACCOUNT BILL Bilirubin Total 0.4 0.0 - 1.2 mg/dL [facility] ACCOUNT BILL Alkaline Phosphatase 81 44 - 121 IU/L [facility] ACCOUNT BILL AST 23 0 - 40 IU/L [facility] ACCOUNT BILL ALT 24 0 - 32 IU/L [facility] ACCOUNT BILL Blood BLOOD SPECIMEN / Unknown 06/14/2024 11:51 AM CDT 06/14/2024 Narrative [facility] ACCOUNT BILL - 06/15/2024 7:09 AM CDT Performed at: 01 - [facility] [id number] [place], [place] [id number] Community Health Nurse Supervisor: Carlos Fowler PhD, Phone: [phone] Yu Jain MD LAB - CHEMISTRY ORDERABLES Final Result [facility] ACCOUNT BILL [address] [place] [address] * HEPATITIS SCREEN ACUTE ([facility]) (08/18/2023 11:15 AM CDT) Hepatitis A Virus Antibody IgM Negative Negative [facility] ACCOUNT BILL Hepatitis B Virus Surface Antigen Negative Negative [facility] ACCOUNT BILL Hepatitis B Core Virus Antibody IgM Negative Negative [facility] ACCOUNT BILL Hepatitis C Antibody Non Reactive Non Reactive [facility] ACCOUNT BILL Blood BLOOD SPECIMEN / Unknown 08/18/2023 11:15 AM CDT 08/18/2023 Narrative Resulting Agency Comment Lab Testing performed at: [facility] [address] [facility] [id number] Yu Jain MD LAB - CHEMISTRY ORDERABLES Final Result [facility] ACCOUNT BILL [address] [place] [address] from Last 3 Months or Most Recently Relevant to Health Maintenance Insurance [facility] [place] [place] [address] [facility] Care Teams Chair Mender Relationship Specialty Start Date End Date Obdulio Troncoso DO [address] [place] [id number] PCP - General Internal Medicine 08/04/23
--- OUTSIDE RECORDS SUMMARY | 2025-01-18 12:49 | XMS_ITS | Clinical Summary ---
Author Organization [facility] Address [address] [place] [id number] Care Team Providers Care Clinical Nurse Specialist Name Role Phone Unavailable Primary Care Provider Unavailabl e Social History Tobacco Use Types Packs/Day Years Used Date Smoking Tobacco: Never Assessed Comments Unknown Sex and Gender Information Value Date Recorded Sex Assigned at Not on file Legal Sex Female 5:29 PM CDT Gender Identity Not on file Sexual Orientation Not on file Plan of Treatment Health Maintenance Due Date Last Done Comments Cervical Cancer Screening Pa p Smear (Age 30 to 64) Every 3 Years 1978 Colorectal Cancer Screening Colonoscopy (10 Years) 1978 Annual Physical 1981 Hepatitis C 1996 DTaP, Tdap and Td Vaccines ( 1 - Tdap) 1997 Hepatitis B Vaccines (1 of 3 - 19+ 3-dose series) 1997 Cervical Cancer Screening Pa p with HPV Testing (Age 30 to 64) Every 5 Years 2008 Cervical Cancer Screening with HPV 2008 Mammogram Screening 2018 COVID-19 Vaccine (2024-2 6 season) 2024 Influenza Adult (#1) 2024 Hepatitis A Vaccines Aged Out No long er eligible based on patient's age to complete this topic Meningococcal B Vaccine Aged Out No l onger eligible based on patient's age to complete this topic Meningococcal Vaccine Aged Out No clinton martina eligible based on patient's age to complete this topic Pneumococcal Vaccine: Pediat rics (0 to 5 Years) and At-Risk Patients (6 to 49 Years) Aged Out No longer eligible b ased on patient's age to complete this topic RSV Immunizations Under 20 Months Aged Out No longer eligible based on patient's age to complete this topic
--- OUTSIDE RECORDS SUMMARY | 2025-01-18 12:49 | XMS_ITS | Clinical Summary ---
Author Organization [facility] Address [address] [address] Care Team Providers Care Sketcher Name Role Phone Obdulio Troncoso DO Primary Care Provider [phone] Catia Cody MD Unavailable + [phone] Selina Rodriguez MD Unavailable [phone] Allergies Active Allergy Reactions Criticality Noted Date Comments Doxycycline Other (See comments) High 07/13/2024 Circumferential esophageal ulcer with significant odynophagia Latex Itching Low Medications ACZONE 7.5 % gel with pumpIndications:Ac ne Vulgaris Apply 1 Dose topically as needed 01/14/20 18 Active albuterol HFA (PROVENTIL HFA,VENTOLIN HFA,PROAIR HFA) 90 mcg/actuation inhaler Inhale 2 puffs every 6 (six) hours as needed for wheezing 06/12/19 23 Active tretinoin (RETIN-A) 0.1 % cream Apply 1 Application topically nightly 02/04/20 23 Active traZODone (DESYREL) 100 mg tablet Take 1 tablet (100 mg total) by mouth nightly for sleep 01/30/20 23 Active diphenoxylate-atro pine (LOMOTIL) 2.5-0.025 mg per tabletIndications: diarrhea Take 1 tablet by mouth daily as needed for diarrhea 90 tablet 1 07/07/19 24 Active sertraline (ZOLOFT) 50 mg tablet Take 1 tablet (50 mg total) by mouth nightly at bedtime 11/04/19 24 Active ondansetron ODT (ZOFRAN-ODT) 4 mg disintegrating tabletIndications: Pouchitis (HCC),Nausea and vomiting, unspecified vomiting type Take 1 tablet (4 mg total) by mouth every 8 (eight) hours as needed for nausea or vomiting 20 tablet 1 01/19/20 24 Active Vitamin D2 1,250 mcg (50,000 unit) capsuleIndications :Low serum vitamin D Take 1 capsule PO one day per month 6 capsule 1 03/26/19 25 Active HYDROcodone-acetam inophen (NORCO) 5-325 mg per tabletIndications: Pain Take 1 tablet by mouth every 6 (six) hours as needed for pain 20 tablet 07/14/19 25 Active ALPRAZolam (Xanax) 0.25 mg tablet Take 1 tablet (0.25 mg total) by mouth nightly as needed 02/09/20 24 Active cefdinir (OMNICEF) 300 mg capsule Take 1 capsule (300 mg total) by mouth as needed 01/30/20 23 Active tazarotene (TAZORAC) 0.05 % cream Apply topically nightly Active valACYclovir (VALTREX) 1 gram tablet TAKE 1 TABLET BY MOUTH THREE TIMES DAILY FOR 10 DAYS 10/30/19 25 Active tazarotene 0.1 % foam 11/20/19 25 Active Active Problems Problem Noted Date Diagnosed Date Cervical cancer screening 11/24/2024 Adult acne 10/15/2024 Atypical chest pain 10/15/2024 Dehydration 10/15/2024 Elevated liver enzymes 10/15/2024 Fatigue 10/15/2024 Hematuria 10/15/2024 Right shoulder pain 10/15/2024 Left knee pain 10/15/2024 Insomnia 10/15/2024 Polyarthralgia 10/15/2024 Sinus infection 10/15/2024 Traumatic arthritis of left knee 10/15/2024 Tear of medial meniscus of left knee 10/15/2024 Sleep disturbance 10/15/2024 Imaging abnormality 10/15/2024 Shoulder lesion, left 10/15/2024 Cyst of bone of left shoulder 10/15/2024 Epigastric pain 07/09/2024 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 In the past it was more associated with onset of disease. She can try doxycycline to see if this is effective at managing her acne. She may also finds switching to something like CORA as would have some of the benefits of her spironolactone without dehydration. She can bring this up with her tube laser operator. Diarrhea, unspecified type 12/18/2023 Assessment & Plan (12/18/2023 4:45 PM CDT): Pylori with 5 day history of diarrhea with cramps, nausea, chills. Workup with elevated white count with neutrophilic predominance, negative lipase, CMP with elevated creatinine 1.20(creatinine normal at baseline), CDiff testing was done that was negative, flu A/ B/RSV/COVID negative, UA negative stool culture was sent. CT abdomen pelvis with mild mucosal enhancement J pouch which is also fluid. Possibly pouchitis. Patient was seen by GI who recommended conservative management for possible viral gastroenteritis IV fluid administration. SEYMOUR (acute kidney injury) 12/18/2023 Assessment & Plan (12/18/2023 4:45 PM CDT): Likely prerenal in setting of diarrhea IV fluid administration and creatinine monitoring HTN (hypertension) 12/18/2023 Assessment & Plan (12/18/2023 4:46 PM CDT): Holding home spironolactone in setting of soft/normal blood pressure Lumbar spondylosis 12/18/2023 Assessment & Plan (12/18/2023 5:25 PM CDT): Patient sees a entry level installation technician at [facility] for lumbar spondylosis, spondylolisthesis, bilateral sacroiliitis who started the patient on methotrexate and leucovorin weekly dosing. Patient missed her last 2 doses Pouchitis 08/12/2023 Assessment & Plan (01/19/2024 4:33 PM POWER GENERATION ENGINEER): The patient's most recent admission was driven by significant dehydration after we would likely was a viral illness. She can use cefdinir as needed if she experiences nocturnal symptoms, watery diarrhea, and urgency but we will also offer her the option of doxycycline as her acne has worsened and this may be effective at managing both. Dr. Phillips had suggested that she could use steroid foam to manage these symptoms. Cortifoam appears to be covered by her insurance. We would like her to try the doxycycline 1st. Nausea and vomiting 04/28/2023 Assessment & Plan (01/19/2024 4:34 PM POWER GENERATION ENGINEER): We will refill the patient's Zofran so hopefully she does not get as dehydrated as she did this time. Assessment & Plan (04/28/2023 5:29 PM POWER GENERATION ENGINEER): The patient is traveling to [place] soon and worries about getting sick. She can certainly take Pepto-Bismol, Lomotil, Cipro, and Zofran with her just in case. 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 Possibly elevated risk for other Bruce related cancers. Assessment & Plan (01/19/2024 4:37 PM POWER GENERATION ENGINEER): The patient will continue to follow closely with tube laser operator and continue pouchoscopy an EGD evaluations per protocol If she wanted to pursue hysterectomy, we would just recommend that she have a colorectal surgeon available during the procedure. Assessment & Plan (04/28/2023 5:28 PM POWER GENERATION ENGINEER): The patient will continue screening endoscopy. She will also follow closely with tube laser operator. 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 MUTYH is associated with an autosomal recessive condition called MUTYH- associated polyposis (MAP). Individuals with MAP have two pathogenic variants, one inherited from each parent. Ms. 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 Carriers do not have a known increased risk for colorectal cancer unless there is also a positive family history. Recommendations for screening and surveillance are made based on family history. Family variant testing is offered to identify other carriers and potentially to identify any individuals affected with MAP. Testing and tracking of the pathogenic variant is most important for individuals too young to have been offered routine colonoscopy and those with young children or planning to have children. When a family member tests positive, partner testing can be offered to rule out a concern for MAP among that couple's children. Family history of colon cancer 07/27/2021 Family history of genetic disease carrier 2021 Nutritional disorder 11/13/2019 Vaginal candidiasis 10/31/2017 Bloating 10/31/2017 Ulcerative pancolitis with complication 11/01/19 18 Overview (11/30/2024): Diagnosed:2010 Symptoms :2008; her initial presentation of abdominal pain, diarrhea and rectal bleeding Distribution: Pancolonic. Her index colonoscopy demonstrated evidence of inflammation in her transverse colon only, but biopsies with chronicity throughout her entire colon. Associated conditions: Bruce syndrome Past treatment:steroids and then transitioned to Lialda, and ultimately flared in 2012 after delivery of her child and was started on Humira with failure to respond. There was some discussion about Entyvio, but the patient ultimately decided to go to surgery given that she was not responding to steroids at that point. Past surgeries: She underwent a 3-stage J-pouch with reversal in December 2016. The patient did have a postop ileus and had a Hypaque enema prior to the ileostomy takedown that was reassuring. Endoscopy: EGD 11/2023 normal esophagus, stomach, duodenal Pouchoscopy 11/2023 normal pouch, normal rectum, single ulcer in pre pouch ileum Pouchoscopy 11/2022 few erosions in pouch Pouchoscopy 07/2021 demonstrated a few scattered erosions in her ileoanal pouch but overall normal, with a normal efferent limb as well as a normal afferent limb. Biopsies of her cuff demonstrated no dysplasia. Imagin11/2023 CT Surgical changes noted compatible with total colectomy with J-pouch. There is fluid noted within the distal small bowel and J-pouch. There is no evidence of bowel obstruction. There is mild enhancement of the J-pouch mucosa. Mildly enlarged pelvic lymph nodes noted. For reference there is a 13.5 x 10.7 cm mesenteric mid pelvic lymph node on table position 355.8. The uterus is myomatous. Small bilateral corpus luteum cyst noted. Urinary bladder appears jeremy Nov 2024: Pouchoscopy. One small pouch erosion and then an ulcer at anastamosis/pouch inlet. Jimmy-TI no inflammation. Assessment & Plan (01/19/2024 4:31 PM POWER GENERATION ENGINEER): Overall the patient has returned to her previous baseline. We would like her to continue annual pouchoscopy. We will consider repeating a CT scan to verify that she is cleared previously seen inflammation. We will also clarify the size pelvic lymph node as 13.5 x 10.7 cm seems very large. Assessment & Plan (12/18/2023 5:24 PM CDT): Status post colectomy Assessment & Plan (04/28/2023 5:27 PM POWER GENERATION ENGINEER): Overall the patient is stable with intermittent episodes pouchitis. Her cancer screening largely be based on her history of Bruce syndrome rather than the duration of her disease. Ileal pouchitis 03/14/2017 Assessment & Plan (04/28/2023 5:28 PM POWER GENERATION ENGINEER): If the patient is having pouchitis symptoms including nocturnal symptoms and watery stools, she can certainly try taking cefdinir but may not need it on a daily basis as there were only few ulcers on pouchoscopy. As she has previously had difficulty with acne, we could consider an alternative therapy such as doxycycline if necessary Major depressive disorder in partial remission 1 Generalized anxiety disorder 12/18/2016 Obsessive-compulsive disorder 12/18/2016 Low vitamin D level 01/31/2016 Depression 03/21/2015 Neurogenic thoracic outlet syndrome 02/09/2006 Overview (05/29/2016): NEUROGENIC THORACIC OUTLET SYNDROME Anxiety state 02/09/2006 Overview (05/29/2016): ANXIETY STATE NOS Fibrositis 02/09/2006 Overview (05/30/2016): FIBROMYALGIA Headache 02/09/2006 Overview (05/30/2016): HEADACHE Encounters Date Type Department Care Team Description 01/11/2025 9:01 AM POWER GENERATION ENGINEER - 01/11/2025 11:59 PM POWER GENERATION ENGINEER Hospital Encounter [facility] Advanced Medicine Breast [facility] ([facility]) [address] [place] [id number] Abnormal mammogram Discharge Disposition: Discharge to home or self care 12/28/2024 12:00 PM POWER GENERATION ENGINEER - 12/28/2024 11:59 PM POWER GENERATION ENGINEER Hospital Encounter [facility] Advanced Medicine Breast Imaging [facility] ([facility]) [address] [place] [phone] Screening mammogram, encounter for Discharge Disposition: Discharge to home or self care 12/27/2024 Telephone [facility] Bone Marrow Transplant [address] Floor 6 [place] [phone] [address] Parisi RMA 12/26/2024 Results Follow-Up [facility] Gastroenterology [address] [place] [address] Medical [address] Building [address] [place] [phone] Bryant Phillips MD Surgical pathology 12/07/2024 Results [facility] Gynec[facility] ([facility]) [address] [place] [phone] Marvel Jeffries MD Pap and High Risk HPV and Genotyping (Cytology Component) 12/01/2024 Documentation [facility] Gastroenterology [address] [place] [address] Medical Office Building [address] [place] [phone] Destinee Mancia RN Colonoscopy follow up 11/30/2024 4:07 PM CDT Anesthesia Event [facility] Endoscopy [address] [place] [address] Oz Perez MD Cohen, Albert M., MD 11/30/2024 4:05 PM CDT - 11/30/2024 4:35 PM CDT Surgery [facility] Endoscopy [address], [place] [address] Bryant Phillips MD POUCHOSCOPY BIOPSY 11/30/2024 1:24 PM CDT - 11/30/2024 5:17 PM CDT Hospital Encounter [facility] Endoscopy [address], [place] [address] Bryant Phillips MD Ulcerative pancolitis with complication (HCC) Discharge Disposition: Discharge to home or self care 11/24/2024 5:40 PM CDT - 11/24/2024 11:59 PM CDT Hospital Encounter [facility] [address] [facility] 1st [place] [phone] PMS2-related Bruce syndrome (HNPCC4); Cervical cancer screening Discharge Disposition: Discharge to home or self care 11/24/2024 2:45 PM CDT Clinical Support [facility] Obstetrics and Gynecology [address] [facility] Medicine 13th [place] [address] [place] [phone] Marvel Jeffries MD PMS2-related Bruce syndrome (HNPCC4) (Primary Dx); Cervical cancer screening 11/24/2024 12:27 PM CDT - 11/24/2024 11:59 PM CDT Hospital Encounter [facility] [address], 7th Floor, [address] [facility] [place] [address] Monoallelic mutation of PMS2 gene Discharge Disposition: Discharge to home or self care 11/12/2024 Telephone [facility] Medicine Gastroenterology [address] [facility] Medicine 12th [place] [address] [place] [phone] [facility] Pre Procedure Assessment from Last 3 Months Immunizations Immunization Administration Dates Next Due Influenza, Quadrivalent, Shawna l Culture-based MDCK, Preservative Free, Antibiotic Free, Intramuscular 03/21/2020 Influenza, Trivalent, Preser vative Free, Intramuscular 12/19/2023(Deferred: Patient Refused - Patient states will get at her upcoming appt),01/25/2016 MMR 09/19/1992 Pneumococcal Conjugate PCV 13 03/21/2020, 016 Td, adsorbed 09/19/1992 Tdap 02/29/2016 Surgical History Surgery Date Site/Laterality Comments LAPAROSCOPIC ASSISSTED TOTAL COLECTOMY W/ J-POUCH 09/27/2016 KNEE ARTHROSCOPY x2 ESOPHAGOGASTRODUODENOSCOPY SUPERFICIAL LYMPH NODE BIOPSY / EXCISION COLONOSCOPY ILEOSTOMY CLOSURE 12/25/2016 - 01/23/2017 STOMA REVERSAL 12/2016 UPPER GASTROINTESTINAL ENDOSCOPY 11/2023 COLECTOMY 2017 KNEE ARTHROSCOPY W/ LATERAL RELEASE 1993, 2020 Medical History Medical History Date Comments Hemorrhoids Fibromyalgia IBS (irritable bowel syndrome) Anxiety and depression GERD (gastroesophageal reflux disease) Asthma exercise induced -rare inhalers UC (ulcerative colitis) 2010 Bruce syndrome Peptic ulceration Nausea and vomiting 04/28/2023 Chronic diarrhea Fatigue 2002 GI (gastrointestinal bleed) 2011 Bowel movement symptom Mouth ulcers Fibromyalgia, primary 2005 Joint pain 2001 Arthritis Autoimmune disease 2011 Back pain 2000 Bowel incontinence Migraines Several years Family History Medical History Relation Name Comments Colon cancer Brother 1 Uri Bruce Syndrome Brother 1 Uri PMS2+, also M UTYH+ heterozygote Colon polyps Brother 2 Arvind Cancer Brother 3 Uri Diaz Colon polyps Father Richie Diaz Rashes / Skin problems Father Richie Diaz Colon polyps Father's Sister Kerrie Cancer Maternal Grandfather Art Gobble Lung cancer Maternal Grandfather Art Gobble history of smoking Arthritis Maternal Grandmother Patria Gobble Heart attack Maternal Grandmother Patria Gobble Heart disease Maternal Grandmother Patria Gobble Obesity Maternal Grandmother Patria Gobble Stroke Maternal Grandmother Patria Gobble Cancer Maternal cousin hematologic cancer in 50s Arthritis Mother America Diaz Bruce Syndrome Mother America Diaz Obesity Mother America Diaz Stroke Other 1 Family history of cerebrovascular accident (CVA) - Relation: Grandmother (Added by TW Conv) Heart attack Other 2 Family history of myocardial infarction - Relation: Grandmother (Added by TW Conv) Ovarian cancer Other 3 Maternal Grea t Aunt Ovarian cancer Other 4 Maternal Grea t Aunt Cancer Paternal Grandfather Glen Diaz Lung cancer Paternal Grandfather Glen Diaz mesothe lioma, work related, history of smoking Alzheimer's disease Paternal Grandmother Ana Diaz Cancer Paternal Grandmother Ana Diaz Hypertension Paternal Grandmother Ana Diaz Obesity Paternal Grandmother Ana Diaz No Known Problems Son 1 Daniel No Known Problems Son 2 Lance No Known Problems Son 3 Gonzalez No Known Problems Son 4 Boyd Breast cancer Neg Hx Pancreatic cancer Neg Hx Prostate cancer Neg Hx Relation Name Status Comments Brother 1 Uir Alive Brother 2 Arvind Alive Brother 3 Uri Diaz Alive Father Richie Diaz Alive Father's Sister Kerrie Alive Maternal Grandfather Mateus Lassiter (Age 68) Maternal Grandmother Patria Lassiter Alive Maternal cousin Alive Mother America Diaz Alive Other 1 Other 2 Other 3 Other 4 Paternal Grandfather Glen Diaz Alive Paternal Grandmother Ana Diaz Alive Son 1 Daniel Alive Son 2 Lance Alive Son 3 Gonzalez Alive Son 4 Herson Alive Social History Tobacco Use Types Packs/Day Years Used Date Smoking Tobacco: Never Passive Smoke Exposure: Never Smokeless Tobacco: Never Tobacco Cessation:Counseling Given: Not Answered Alcohol Use Standard Drinks/Week Comments Not Currently [...] on file Legal Sex Female 6:35 AM POWER GENERATION ENGINEER Gender Identity Female 11/08/2019 7:12 PM CDT Sexual Orientation Straight 11/08/2019 7: 12 PM CDT Obstetrics History Para Term AB IAB SAB Ectopic Multiple Livin g Live Births 4 4 4 4 4 Date Outcome GA Total Labor Labor/2nd/3rd Weight Sex Type Anes PTL Lucia A1 A5 Name Clin Term Term Term Term Last Filed Vital Signs Vital Sign Reading Time Taken Comments Blood Pressure 102/64 11/30/2024 5:05 PM CDT Pulse 70 11/30/2024 5:05 PM CDT Temperature 36.2 C (97.2 F) 11/30/2024 4:30 PM CDT Respiratory Rate 18 11/30/2024 5:05 PM CDT Oxygen Saturation 97% 11/30/2024 5:05 PM CDT Inhaled Oxygen Concentration - - Weight 61.7 kg (136 lb) 12/28/2024 12:37 PM POWER GENERATION ENGINEER Height 157.5 cm (5' 2) 12/28/2024 12:37 PM POWER GENERATION ENGINEER Body Mass Index 24.87 12/28/2024 12:37 PM POWER GENERATION ENGINEER Plan of Treatment Health Maintenance Due Date Last Done Comments Colon Cancer Screening-Colonoscopy 1978 Depression Screening 1978 Hepatitis C Screening 1978 Hepatitis B Screening 1996 Regular Well Visit/Exam 18-64 1996 Covid-19 Vaccine (3 - 2024-2 6 season) 2024 04/14/2020, 03/16/2020 Influenza Vaccine (#1) 2024 , 01/25/2016 Cervical Cancer Screening 11/24/20252024, 11/24/2024, 07/04/2014 Breast Cancer Screening-Mammogram 01/11/2026 01/11/2025, 12/28/2024, 03/26/2023 DTaP/Tdap/Td Vaccine (2 - Td or Tdap) 02/28/2026 02/29/2016, 09/19/1992 Pneumococcal vaccine <65 Aged Out 021, 01/25/2016 No longer eligible based on patient's age to complete this topic HPV Vaccines Aged Out No longer eligi ble based on patient's age to complete this topic Procedures Procedure Name Priority Date/Time Associated Diagnosis Comments DIAGNOSTIC MAMMOGRAM BILATERAL W DOROTEO Routine 01/11/2025 10:06 AM POWER GENERATION ENGINEER Abnormal mammogram SCREENING MAMMOGRAM BILATERAL W DOROTEO Schedule Routine, Read Routine (OP Routine) 12/28/2024 1:00 PM POWER GENERATION ENGINEER Screening mammogram, encounter for SURGICAL PATHOLOGY Routine 11/30/2024 4: 17 PM CDT Ulcerative pancolitis with complication (HCC) POUCHOSCOPY BIOPSY 11/30/2024 4: 07 PM CDT Ulcerative pancolitis with complication (HCC) POUCHOSCOPY 11/30/2024 4:05 PM CDT POCT HCG, URINE Routine 11/30/2024 PAP AND HIGH RISK HPV, REFLEX TO GENOTYPING Routine 11/24/2024 5:40 PM CDT PMS2-related Bruce syndrome (HNPCC4) Cervical cancer screening HIGH RISK HPV DNA DETECTION WITH GENOTYPING Routine 11/24/2024 5:40 PM CDT PMS2-related Bruce syndrome (HNPCC4) Cervical cancer screening US PELVIS COMPLETE Routine 11/24/2024 12 :27 PM CDT Monoallelic mutation of PMS2 gene from Last 3 Months Results * Diagnostic Mammogram Bilateral W Doroteo (01/11/2025 10:06 AM POWER GENERATION ENGINEER) Anatomical Region Laterality Modality Breast Bilateral Mammography 01/11/2025 10:1 9 AM POWER GENERATION ENGINEER Impressions 01/11/2025 11:38 AM POWER GENERATION ENGINEER No suspicious abnormality in either breast OVERALL FINAL ASSESSMENT: BI-RADS Category 2: Benign. RECOMMENDATION: 1. Annual screening mammography is recommended. 2. Breast MRI should also be considered for supplemental imaging surveillance given dense breast tissue. Dr. Penny Burgess discussed the above findings and recommendations with the patient, who expressed her understanding of the management plan. Dictated by: Penny Burgess MD The radiology attending physician has personally reviewed this study, and had reviewed and/or edited this written report and agrees with it. Electronically signed by: Meggan Ferrara M.D. Narrative 01/11/2025 11:38 AM POWER GENERATION ENGINEER EXAMINATION: BILATERAL DIGITAL DIAGNOSTIC MAMMOGRAM INCLUDING CAD AND BILATERAL DIGITAL BREAST TOMOSYNTHESIS HISTORY: 44-year-old woman presenting as screening call back for 2 asymmetries in the LEFT breast and 2 asymmetries and calcifications in the RIGHT breast. Patient has personal history of Bruce syndrome. Family history of ovarian cancer in patient's maternal great aunt. COMPARISON: Multiple prior mammograms including 12/28/2024, diagnostic mammogram and ultrasound 04/17/2023, mammogram 03/26/2023 TECHNIQUE: Full field digital mammographic views of BOTH breasts were performed, including computer aided detection (CAD) and BILATERAL digital breast tomosynthesis (DBT). BREAST PARENCHYMAL COMPOSITION: The breasts are extremely dense, which lowers the sensitivity of mammography. MAMMOGRAM FINDINGS: LEFT breast: The questioned asymmetries in the upper and outer LEFT breast correspond to benign lymph nodes. No new suspicious abnormality is seen in the LEFT breast. RIGHT breast: The questioned asymmetry in the outer RIGHT breast on XCCL view corresponds to a benign lymph node. The questioned asymmetry in the upper RIGHT breast effaces on additional views, consistent with overlapping fibroglandular tissue. There are scattered amorphous calcifications in the upper outer right breast. These have a benign appearance on additional views. There is no new suspicious abnormality in the RIGHT breast. Obdulio Troncoso DO IMG MAMMO PROCEDURES Final Result * (ABNORMAL) Screening Mammogram Bilateral W Doroteo (12/28/2024 1:00 PM POWER GENERATION ENGINEER) Anatomical Region Laterality Modality Breast Bilateral Mammography Impressions 12/29/2024 3:44 PM POWER GENERATION ENGINEER Left 1) Asymmetry: Left breast asymmetry in the outer region, posterior depth. Assessment: 0 - Incomplete. Diagnostic mammogram with possible ultrasound is recommended. 2) Asymmetry: Left breast asymmetry in the upper region, posterior depth. Assessment: 0 - Incomplete. Diagnostic mammogram with possible ultrasound is recommended. Right 3) Calcifications: Right breast calcifications in the upper outer quadrant and outer central region. Assessment: 0 - Incomplete. Diagnostic Mammogram is recommended. 4) Asymmetry: Right breast asymmetry in the upper region, posterior depth. Assessment: 0 - Incomplete. Diagnostic mammogram with possible ultrasound is recommended. 5) Asymmetry: Right breast asymmetry in the outer region, posterior depth. Assessment: 0 - Incomplete. Diagnostic mammogram with possible ultrasound is recommended. OVERALL BI-RADS FINAL ASSESSMENT: 0 - Incomplete: Needs Additional Imaging Evaluation RECOMMENDATIONS: Recommend right breast diagnostic mammogram. Recommend bilateral diagnostic mammogram with possible ultrasound. Narrative 12/29/2024 3:44 PM POWER GENERATION ENGINEER EXAMINATION: Screening Mammogram Bilateral W Doroteo: 12/28/2024 COMPARISON: Relevant prior studies available at the time of interpretation were reviewed, including the most recent mammogram on: 04/17/2023, 03/26/2023, 04/19/2021, and 12/29/2019. TECHNIQUE: Mammography was performed with 2D and digital breast tomosynthesis (DBT) images. CAD was utilized. BREAST PARENCHYMAL COMPOSITION: The breasts are extremely dense, which lowers the sensitivity of mammography. FINDINGS: Left 1) Asymmetry: There is an asymmetry in the outer region of the left breast, posterior depth on the CC view. This finding needs additional imaging evaluation. 2) Asymmetry: There is an asymmetry in the upper region of the left breast, posterior depth on the MLO view. This finding needs additional imaging evaluation. Right 3) Calcifications: There are calcifications in a regional distribution in the outer central to upper outer right breast. These are new from prior. This finding needs additional imaging evaluation. 4) Asymmetry: There is an asymmetry in the upper region of the right breast, posterior depth on the MLO view. This finding needs additional imaging evaluation. 5) Asymmetry: There is an asymmetry in the outer region of the right breast, posterior depth on the XCCL view. This appears to represent a prominent low axillary/axillary tail lymph node and was not previously definitely included in the field of view on prior studies for comparison. Therefore additional evaluation is recommended. This finding needs additional imaging evaluation. us Self Screening Mammogram IMG MAMMO PROCEDURES Fi nal Result * Surgical pathology (11/30/2024 4:17 PM CDT) Tissue (Ileum, Biopsy) 11/30/2024 4:17 PM CDT Tissue specimen (specimen) (Ileum, Biopsy) 11/30/2024 4:18 PM CDT Tissue specimen (specimen) (Rectal biopsy) 11/30/2024 4:20 PM CDT Narrative PATHOLOGY [facility] - 12/01/2024 4:58 PM CDT EPIC results best viewed via link to PDF [facility] Dinorah [facility]og [facility] [place] [address] Note to Patients: This report may contain a detailed description of human tissue sent by a health care provider to the laboratory for pathologic evaluation. The content of this report is essential for diagnosis and may provide important critical findings. This information may be unfamiliar to patients to review without a medical professional present. It is advised that the patient review this report in the presence of a health care provider who can answer questions and explain the details. SURGICAL PATHOLOGY REPORT FINAL Patient Name: JAE DIAZ Gender: F : 1980 (Age: 44) Address: [address] [place], [place] [address] [facility] #: [id number] Taken:11/30/2024 Received:11/30/2024 Reported: 12/01/2024 Patient Type: [facility] SAME Client [facility] Service: Gastro Location: Physician(s): Félix Tubbs DO Diagnosis: A. Small bowel, ileum, pre pouch, biopsy - Normal small bowel mucosa - Negative for dysplasia, granulomata, and viral cytopathic effect B. Pouch, biopsy - Small bowel mucosa with mild chronic inflammation and reactive epithelial changes - Negative for dysplasia, granulomata, and viral cytopathic effect C. Rectum, rectal cuff, biopsy - Colonic mucosa with mild chronic inflammation and reactive epithelial changes - Negative for dysplasia, granulomata, and viral cytopathic effect [facility]/12/01/2024 16:58 By this signature, I attest that the above diagnosis is based upon my personal examination of the slides(and/or other material indicated in the diagnosis). Carmelo Munoz MD PhD Report Electronically Reviewed and Signed Out By Carmelo Munoz MD PhD 12/01/2024 16:58:03 Kimberly Alonzo M.D., PhD History: The patient is a 44-year-old woman presenting with ulcerative pancolitis with complication. Operative procedure: Pouchoscopy biopsy. Specimen(s) Received: A: Pre pouch ileum biopsy B: Pouch biopsy C: Rectal cuff biopsy Gross Description: Received in three formalin jars labeled with the patient's identifiers. A. Labeled pre pouch ileum and consists of multiple oleary-pink fragment(s) of soft tissue measuring 0.8 x 0.6 x 0.1 cm in aggregate. Labeled A1. Jar 0. B. Labeled pouch and consists of multiple pink-oleary fragment(s) of soft tissue measuring 1.2 x 0.6 x 0.1 cm in aggregate. Labeled B1. Jar 0. C. Labeled rectal cuff and consists of three oleary-pink fragment(s) of soft tissue measuring 0.3-0.4 cm each in greatest dimension. Labeled C1. Jar 0. sxst/11/30/2024 19:07 PA(s): Radha Rodriguez By this signature, I attest that the above diagnosis is based upon my personal examination of the slides(and/or other material). Addenda/Procedures Microscopic slide review and interpretation for this case was performed at [facility], Department of Surgical Pathology, [address] [facility], [place] [id number], [place] [address] CLIA # [id number] The performance characteristics of some immunohistochemical stains, fluorescence in-situ hybridization tests and immunophenotyping by flow cytometry cited in this report (if any) were determined by the Surgical Pathology and Flow Cytometry Departments at [facility] as part of an ongoing air quality engineer program and in compliance with federally mandated regulations drawn from the Clinical Laboratory Improvement Act of 1988 (CLIA '88). Some of these tests rely on the use of analyte specific reagents and are subject to specific labeling requirements by the US Food and Drug Administration. Such diagnostic tests may only be performed in a facility that is certified by the Department of Health and Human Services as a high complexity laboratory under CLIA '88. The FDA has determined that such clearance or approval is not necessary. This test is used for clinical purposes. It should not be regarded as investigational or for research. Nevertheless, federal rules concerning the medical use of analyte specific reagents require that the following disclaimer be attached to the report: This test was developed and its performance characteristics determined by the Surgical Pathology and Flow Cytometry Departments of [facility]. It has not been cleared or approved by the U. S. Food and Drug Administration. IMAGES AND SCANNED DOCUMENTS, IF INCLUDED, ONLY VIEWABLE IN PDF VERSION OF REPORT Bryant Phillips MD LAB PATHOLOGY ORDERABLES Final Result PATHOLOGY [facility] [phone] * Pouchoscopy (11/30/2024 4:05 PM CDT) Anatomical Region Laterality Modality Other Narrative Procedure Note Bryant Phillips MD - 11/30/2024 4:05 PM CDT ENDOSCOPY LAB Patient Name: Jea Diaz Procedure Date: 11/30/2024 4:05 PM Date of : 1980 Admit Type: Outpatient Age: 44 Gender: Female Attending MD: Bryatn Phillips M.D., Room: [facility] ENDOSCOPY ROOM 01 Note Status: Finalized Procedure: Pouchoscopy Indications: Inflammatory bowel disease, Bruce Syndrome Providers: Bryant Phillips M.D. Referring MD: Obdulio Troncoso D.O. Medicines: Monitored Anesthesia Care Complications: No immediate complications. Estimated Blood Loss: Estimated blood loss: none. Procedure: Pre-Anesthesia Assessment: - Immediately prior to administration ofmedications, the patient was re-assessed for adequacy to receive sedatives. After obtaining informed consent, the endoscope was passed under direct vision. Throughout theprocedure, the patient's blood pressure, pulse, and oxygen saturations were monitored continuously. The [id number] was introduced through theileoanal anastomosis via the anus and advanced to theileoanal pouch and into the jimmy-terminal ileum. Theprocedure was performed without difficulty. The patient tolerated the procedure well. The quality of thebowel preparation was excellent. Findings: The jimmy-terminal ileum appeared normal. Biopsies were taken with acold forceps for histology. The ileoanal pouch contained a few localized non-bleeding erosions.No stigmata of recent bleeding were seen. Biopsies were taken with acold forceps for histology. There was a rectal cuff beginning at at 1 cm from the anal verge, characterized by healthy appearing mucosa. The cuff extended 2 cm in length. Biopsies were taken with a cold forceps for histology. The perianal exam findings include non-thrombosed externalhemorrhoids. Impression: - The examined portion of the ileum was normal. Biopsied. - A few erosions in the ileoanal pouch. Biopsied. - Rectal cuff with healthy appearing mucosa seen. Biopsied. - Non-thrombosed external hemorrhoids found on perianal exam. Recommendation: - Repeat post-surgical lower GI endoscopy in 1 year for surveillance. - Continue present medications. - Await pathology results. Attending Participation: I personally performed the entire procedure. Electronically signed by Bryant Phillips MD Bryant Phillips M.D. 11/30/2024 4:43:45 PM Number of Addenda: 0 Note Initiated On: 11/30/2024 4:05 PM us Bryant Phillips MD ENDOSCOPY PROCEDURES Fin al Result * POCT hCG, urine (11/30/2024) HCG, ur, POC Negative Negative Lot Number [id number] QC Backgroud Clear Acceptable QC Control Line Acceptable Urine 11/30/2024 Historical Provider POINT OF CARE TEST ORDERA BLES Final Result * High Risk HPV DNA Detection with Genotyping (Molecular component) (11/24/2024 5:40 PM CDT) HPV HR 16 Not Detected Not Detected [facility] HPV HR 18 Not Detected Not Detected [facility] HPV HR Non 16/18 Not Detected Not Detected [facility] Comment: Interpretive Data Nucleic acid amplification for detection of high-risk Human Papilloma virus (HPV) is performed by the Jose Malcolm 6800 HPV test. This assay specifically detects HPV-16 and HPV-18 genotypes. The following HPV genotypes are detected as high-risk HPV: HPV-31, 33, 35, ,39, 45, 51, 52, 56, 58, 59, 66, and 68. This assay has been approved by the [place] Food and Drug Administration for detection of HPV in cervical specimens collected by a physician using an endocervical brush/spatula or cervical broom and placed in the ThinPrep Pap Test PreservCyt collection containers. The performance characteristics of this test have been verified by the [facility] Molecular Infectious Disease laboratory. Correlate with separately reported cytology results, as applicable. Interpretive data last revised 22 Endocervical 11/24/2024 5:40 PM CDT 11/30/2024 10:48 AM CDT Narrative [facility] - 11/30/2024 8:04 PM CDT Clinical history and diagnosis->screening Number of vials->1 Testing type->Screening Last menstrual period (date if known)->2 weeks ago Menstrual status->Regular Marvel Jeffries MD LAB BODY FLUIDS AND STOO LS ORDERABLES Final Result [facility] [address] [facility] [place] [address] [facility] * Pap and High Risk HPV and Genotyping (Cytology Component) (11/24/2024 5:40 PM CDT) Thin prep (Pap test) 11/24/2024 5:40 PM CDT 11/24/2024 7:28 PM CDT Narrative PATHOLOGY [facility] - 12/03/2024 9:26 AM CDT EPIC results best viewed via link to PDF [facility] Dinorah Herzog [facility] [place] [address] Note to Patients: This report may contain a detailed description of human tissue sent by a health care provider to the laboratory for pathologic evaluation. The content of this report is essential for diagnosis and may provide important critical findings. This information may be unfamiliar to patients to review without a medical professional present. It is advised that the patient review this report in the presence of a health care provider who can answer questions and explain the details. CYTOPATHOLOGY REPORT FINAL Patient Name: JAE DIAZ Gender: F : 1980 (Age: 44) Address: [address] [place], [place] [address] Hospital #: [id number] Service: TEMP RECRUITER Location: Patient Type: [facility] SPECIMEN Taken: 11/24/2024 Received: 11/24/2024 Accessioned: 11/30/2024 Reported: 12/03/2024 Physician(s): Marvel Jeffries M.D. FINAL INTERPRETATION SOURCE OF SPECIMEN Liquid based Thin Prep pap with HPV: STATEMENT OF ADEQUACY - Satisfactory for evaluation - Endocervical cells/transformation zone sample present GENERAL CATEGORIZATION: - Negative for squamous intraepithelial lesion or malignancy Comments (Normal-Negative for High Risk HPV) HPV HR 16- Not detected HPV HR 18-Not detected HPV HR non 16/18- Not detected Interpretive Data Nucleic acid amplification for detection of high-risk Human Papilloma virus (HPV) is performed by the Jose Malcolm 6800 HPV test. This assay specifically detects HPV- 16 and HPV-18 genotypes. The following HPV genotypes are detected as high-risk HPV: HPV-31, 33, 35, 39, 45, 51, 52, 56, 58, 59, 66, and 68. This assay has been approved by the [place] Food and Drug Administration for detection of HPV in cervical specimens collected by a physician using an endocervical brush/spatula or cervical broom and placed in the ThinPrep Pap Test PreservCyt collection containers. The performance characteristics of this test have been verified by the [facility] Molecular Infectious Disease laboratory. Correlate with reported cytology results, as applicable. Interpretive data last revised 08/16/2212/03/2024 09:[address] (ASCP) Report Electronically Reviewed and Signed Out By Bushra Aguiar MS CT (ASCP) 12/03/2024 09:26:54 Cervicovaginal Cytology (Pap Test) Disclaimer: The Pap test is a screening test used to detect cervical cancer and its precursors; it is not a diagnostic procedure. False negative and false positive results do occur. Pap test results should be interpreted in the context of pertinent clinical information and biopsy results as indicated. [facility] Clinical Laboratory Improvement Amendments (CLIA) mandate that cytologic and histologic results be correlated for laboratory quality assurance calibrator & improvement standards. FOR ALL HIGH-GRADE CASES we request submission of follow-up histological material and/or reports that have not been previously provided so that we may fulfill said required standards. Gross Description A. 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 Report Images and scanned documents, if included only viewable in PDF version The performance characteristics of some immunohistochemical stains, in-situ hybridization and fluorescence in-situ hybridization tests and immunophenotyping by flow cytometry cited in this report (if any) were determined by the Surgical Pathology Department at [facility] as part of an ongoing air quality engineer program and in compliance with federally mandated regulations drawn from the Clinical Laboratory Improvement Act of 1988 (CLIA '88). Some of these tests rely on the use of analyte specific reagents and are subject to specific labeling requirements by the [place] Food and Drug Administration. Such diagnostic tests may only be performed in a facility that is certified by the Department of Health and Human Services as a high complexity laboratory under CLIA '88. The FDA has determined that such clearance or approval is not necessary. This test is used for clinical purposes. It should not be regarded as investigational or for research. Nevertheless, federal rules concerning the medical use of analyte specific reagents require that the following disclaimer be attached to the report: This test was developed and its performance characteristics determined by the Surgical Pathology Department of [facility]. It has not been cleared or approved by the [place]. S. Food and Drug Administration. Marvel Jeffries MD LAB CYTOLOGY ORDERABLES Final Result PATHOLOGY [facility] 3rd Floor [place], [place] [phone] * US Pelvis Complete (11/24/2024 12:27 PM CDT) Endometrial Thickness 7.3 mm&millime ters [facility] Anatomical Region Laterality Modality Pelvis N/A Ultrasound 11/24/2024 12:4 2 PM CDT Impressions 11/24/2024 1:20 PM CDT The uterus is anteverted and normal in size and morphology. There were no endometrial or myometrial abnormalities. Normal sized, and morphologically normal appearing ovaries were found in each adnexa. There were small follicles found in each ovary. There was no evidence of free fluid in the pelvis or other pelvic masses. Impression: Normal pelvis by sonography. Narrative Procedure Note Dannielle Shields MD - 11/24/2024 IMPRESSION: The uterus is anteverted and normal in size and morphology. There were no endometrial or myometrial abnormalities. Normal sized, and morphologically normal appearing ovaries were found ineach adnexa. There were small follicles found in each ovary. There was no evidence of free fluid in the pelvis or other pelvicmasses. Impression: Normal pelvis by sonography. Marvel Jeffries MD IMG US PROCEDURES Final Result from Last [address] [place] [address] ANTH ACCESS CHOICE [employer] [place] [address] [employer] Advance Directives For more information, please contact: [phone] * Full Code (Latest Code Status on File) Date Activated Date Inactivated Comments 11/30/2024 4:30 PM 11/30/2024 9:17 PM * Full Code Date Activated Date Inactivated Comments 11/30/2024 2:20 PM 11/30/2024 4:30 PM * Full Code Date Activated Date Inactivated Comments 07/13/2024 1:34 PM 07/13/2024 7:45 PM * Full Code Date Activated Date Inactivated Comments 12/18/2023 3:16 PM 12/19/2023 7:11 PM * Full Code Date Activated Date Inactivated Comments 11/25/2023 9:44 AM 11/25/2023 3:44 PM Care Teams Sketcher Relationship Specialty Start Date End Date Obdulio Troncoso DO PCP - General 08/14/16 Catai Cody MD [address] [place] [address] Referring Physician Gastroenterology 01/09/22 Selina Rodriguez MD [address] [place] [address] Referring Physician Genetics 02/11/22
--- OUTSIDE RECORDS SUMMARY | 2025-01-18 12:49 | XMS_ITS | Encounter Summary ---
Author Organization [facility] Address [address] [place] [address] Phone Care Team Providers Care Cop Name Role Phone Obdulio Troncoso DO Primary Care Provider [phone]- [phone] Catia Cody MD Unavailable [phone] Selina Rodriguez MD Unavailable [phone] Encounter Details Date Type Department Care Team (Late st Contact Info) Description 12/26/2024 Results Follow-Up [facility] Medicine Gastroenterology [address] [facility] [address] [place] [address] Bryant Phillips MD [address] [place] [address] Surgical pathology Social History Tobacco Use Types Packs/Day Years [...] on file Legal Sex Female 6:35 AM INFORMATION ENGINEER Gender Identity Female 11/08/2019 7:12 PM CDT Sexual Orientation Straight 11/08/2019 7: 12 PM CDT documented as of this encounter Plan of Treatment Not on file documented as of this encounter Visit Diagnoses Not on filedocumented in this encounter Care Teams Cop Relationship Specialty Start Date End Date Obdulio Troncoso DO PCP - General 08/14/16 Catia Cody MD [address] [place] [address] Referring Physician Gastroenterology 01/09/22 Selina Rodriguez MD [address] [place], [place] [id number] Referring Physician Genetics 02/11/22 documented as of this encounter
--- OUTSIDE RECORDS SUMMARY | 2025-01-18 12:49 | XMS_ITS | Encounter Summary ---
Author Organization [facility] Address [address] [place] [address] Care Team Providers Care Powerhouse Laborer Name Role Phone Andre Garner MD Primary Care Provider [phone] Obdulio Troncoso DO Primary Care Provider [phone] Encounter Details Date Type Department Care Team (Late st Contact Info) Description 04/08/2019 Lab Requisition [facility] DermPath Lab [address] [place] [address] Murali Menjivar MD [address] [place] [address] Social History Tobacco Use Types Packs/Day Years Used Date Smoking Tobacco: Never Assessed Comments Unknown Sex and Gender Information Value Date Recorded Sex Assigned at Not on file Legal Sex Female 2:21 PM WRITER EDITOR Gender Identity Not on file Sexual Orientation Not on file documented as of this encounter Plan of Treatment Not on file documented as of this encounter Procedures Procedure Name Priority Date/Time Associated Diagnosis Comments DERMATOPATHOLOGY Routine 04/07/2019 12:0 0 AM WRITER EDITOR documented in this encounter Results * DERMATOPATHOLOGY (04/07/2019 12:00 AM WRITER EDITOR) Case Report Dermatopathology Report Case: [id number] Authorizing Provider: Murali Menjivar MD Collected: 04/07/2019 12:00 AM Ordering Location: [facility] DermPath Lab Received: 04/08/2019 02:43 PM Pathologist: Terra Almanza MD Specimen: Skin, right dorsum hand 0 1:57 PM WRITER EDITOR DERMATOPATHOLOGY LABORATORY Final Diagnosis Specimen A. SKIN, right dorsum hand: BLUE NEVUS, COMMON TYPE (D22.9) PRESENT AT MARGIN 0 1:57 PM WRITER EDITOR DERMATOPATHOLOGY LABORATORY at 1357 WRITER EDITOR Clinical History Nevus vs MM. Check margins. [id number]. 0 1:57 PM WRITER EDITOR DERMATOPATHOLOGY LABORATORY Gross Description Specimen A: Received is one formalin filled container labeled with the patient's name and designated right dorsum hand. The specimen consists of a shave biopsy (2 pieces) measuring [id number] & [id number]. The margins are inked green. Jar 0. 0 1:57 PM WRITER EDITOR DERMATOPATHOLOGY LABORATORY Microscopic Description Specimen A. SKIN, right dorsum hand: Within the dermis there are oval, spindle-shaped and dendritic melanocytes with melanophages. This lesion is present at the margin of the specimen. 0 1:57 PM WRITER EDITOR DERMATOPATHOLOGY LABORATORY Disclaimer An external and internal positive and negative controls are appropriate for the histochemical, immunohistochemical and immunofluorescence stain(s) in this case (if any), except where stated explicitly. The performance characteristics of the stain(s) cited in this report were developed and its performance characteristic determined by the Dermatopathology Laboratory at [facility], directed by Dr. Radha Lopez. These tests need not be, and therefore are not, approved by the [place] Food and Drug Administration. The tests are used for clinical purposes. Billing Codes Specimen Charges Stain Charges 03966 1 0 1:57 PM WRITER EDITOR DERMATOPATHOLOGY LABORATORY Embedded Images 0 1:57 PM WRITER EDITOR DERMATOPATHOLOGY LABORATORY Pathology/Cytolog y TISSUE SPECIMEN FROM SKIN / Unknown 04/07/2019 04/08/2019 2:43 PM WRITER EDITOR us Murali Menjivar MD LAB - PATHOLOGY/CYTOLOGY ORDER CROW Final Result DERMATOPATHOLOGY LABORATORY [facility] - Department of Dermatology [address] Lab [address] [phone] documented in this encounter Visit Diagnoses Not on filedocumented in this encounter Care Teams Powerhouse Laborer Relationship Specialty Start Date End Date Andre Garner MD [address] [facility] [address] [place] [id number] PCP - General 04/08/19 08/03/23 Obdulio Troncoso DO [address] [place] [phone] PCP - General Internal Medicine 08/04/23 documented as of this encounter
[2025-01-18 20:16] LABS: Add Urine Microscopic? YES; Appearance Urine Clear (Clear); Glucose Urine UA Negative (Negative); Leukocyte Esterase Ur Trace LEU/UL (Negative); Need Manual Microscopic Reviewed; Nitrate Urine Negative (Negative); Non Pathogenic Casts 0-2; Specific Grav Ur 1.021 (1.001-1.035)
== END 2025-01-18 11:03 | disposition home or self-care (01) ==
LOC: ANHGOSHLAB 11:03
PROVIDERS: PCP Internal Medicine
DX: R31.9 Hematuria, unspecified (principal); R30.0 Dysuria
CPT/HCPCS: 81001